=== PATIENT | male | born 1995 | race Caucasian/White ===

== ENCOUNTER 2018-01-11 11:36 | Outpatient (CLI) | payer MEDICAID | END 2018-01-11 11:37 | disposition critical access hospital (66) | LOC: EMS 11:36 | PROVIDERS: ATTEND Surgery | DX: S81.011A Laceration without foreign body, right knee, initial encounter (principal); V03.10XA Pedestrian on foot injured in collision with car, pick-up truck or van in traffic accident, initial encounter; Y93.01 Activity, walking, marching and hiking; Y92.413 State road as the place of occurrence of the external cause | CPT/HCPCS: A0425; A0429; A0999 ==

== ENCOUNTER 2018-01-11 11:53 | Emergency (ER) | payer MEDICAID ==
[2018-01-11] MEDS ORDERED: HYDROcod/ACETAM 10 MG/325 MG TABLET PO STA (12:07)
[2018-01-11] MEDS ORDERED: TETANUS/DIPHTHERIA/PERTUSSIS 0.5 ML SYRINGE IM ONE (12:07)
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
[2018-01-11] MEDS: NAPROXEN 250 MG TABLET PO STA ×2 (12:14→12:15)
--- NOTE | 2018-01-11 13:10 | XRAY Report ---
Procedure Date: 01/11/2018 Accession Number: [id number] / [id number] Procedure: XR - Pelvis 1 View CPT Code: FULL RESULT: EXAM: PELVIS RADIOGRAPHY EXAM DATE: 01/11/2018 12:47 PM. CLINICAL HISTORY: Pain after injury. COMPARISON: None. TECHNIQUE: 1 view. FINDINGS: Bones: Normal. No fracture or bone lesion. Joints: The visualized hip, pubis symphysis, and sacroiliac joints are preserved. No subluxation. Soft Tissues: Normal. No soft tissue swelling. IMPRESSION: Normal pelvis radiography. RADIA
--- NOTE | 2018-01-11 13:10 | XRAY Report ---
Procedure Date: 01/11/2018 Accession Number: [id number] / [id number] Procedure: XR - Knee 3 View BILAT CPT Code: FULL RESULT: EXAMS: 1. RIGHT KNEE RADIOGRAPHY 2. LEFT KNEE RADIOGRAPHY EXAM DATE:01/11/2018 12:47 PM. CLINICAL HISTORY:Pain after injury. COMPARISON: None. TECHNIQUE: 3 views each. FINDINGS: Right Knee: Bones: Normal. No fractures or bone lesions. Joints: Normal. No effusion. No subluxations. Small osteophyte off the medial patellar facet. Soft Tissues: Normal. No soft tissue swelling. Left Knee: Bones: Normal. No fractures or bone lesions. Joints: Normal. No effusion. No subluxations. Soft Tissues: Normal. No soft tissue swelling. IMPRESSION: No acute bony abnormality. RADIA
--- NOTE | 2018-01-11 13:11 | XRAY Report ---
Procedure Date: 01/11/2018 Accession Number: [id number] / [id number] Procedure: XR - Tib/Fib RT CPT Code: FULL RESULT: EXAM: RIGHT TIBIA/FIBULA RADIOGRAPHY EXAM DATE: 01/11/2018 12:48 PM. CLINICAL HISTORY: Pain after injury. COMPARISON: None. TECHNIQUE: 4 views. FINDINGS: Bones: Normal. No fracture or bone lesion. Joints: The visualized knee and ankle joints are normal. No effusions. Soft Tissues: Normal. No soft tissue swelling. IMPRESSION: Normal tibia/fibula radiography. RADIA
[2018-01-11] MEDS ORDERED: LIDOCAINE-EPINEPH-TETRACAINE 3 ML SYRINGE TOP STA (13:27)
[2018-01-11 14:31] VITALS: BP 126/71
== END 2018-01-11 14:31 | disposition home or self-care (01) ==
LOC: ED 11:53
DX: S80.212A Abrasion, left knee, initial encounter (principal); S81.011A Laceration without foreign body, right knee, initial encounter; S80.00XA Contusion of unspecified knee, initial encounter; V09.9XXA Pedestrian injured in unspecified transport accident, initial encounter; Y92.410 Unspecified street and highway as the place of occurrence of the external cause; Y93.01 Activity, walking, marching and hiking
CPT/HCPCS: 12001; 72170; 73562; 73590; 90471; 90715; 99283; A9270

== ENCOUNTER 2018-01-15 14:09 | Outpatient (CLI) | payer MEDICAID ==
[2018-01-15 18:42] LABS: BASOPHILS % (AUTO) 0.5 %; EOSINOPHILS % (AUTO) 0.6 %; HGB - HEMOGLOBIN 15.2 g/dL (14.0-18.0); LYMPHOCYTES # (AUTO) 1.7 10^3/uL (1.5-3.5); LYMPHOCYTES % (AUTO) 23.4 %; MEAN CORPUSCULAR HEMOGLOBIN 32.4 pg (27.0-31.0); MEAN CORPUSCULAR HGB CONC 34.3 g/dL (32.0-36.0); MEAN CORPUSCULAR VOLUME 94.6 fL (80.0-94.0); MONOCYTES # (AUTO) 0.6 10^3/uL (0.0-1.0); MONOCYTES % (AUTO) 7.7 %; NEUTROPHILS # (AUTO) 4.9 10^3/uL (1.5-6.6); NEUTROPHILS % (AUTO) 67.8 %; PLT - PLATELET COUNT 188 10^3/uL (130-450); RED BLOOD COUNT 4.68 10^6/uL (4.70-6.10); RED CELL DISTRIBUTION WIDTH 12.2 % (12.0-15.0); WHITE BLOOD COUNT 7.2 x10^3/uL (4.8-10.8)
[2018-01-15 19:08] LABS: LITHIUM 0.29 mmol/L
[2018-01-15 19:10] LABS: ALBUMIN 4.7 g/dL (3.2-5.5); ALBUMIN/GLOBULIN RATIO 1.6 (1.0-2.2); ALKALINE PHOSPHATASE 89 IU/L (42-121); ALT ALANINE AMINOTRANSFERASE 26 IU/L (10-60); AST ASPARTATE AMINOTRANSFERASE 32 IU/L (10-42); BILIRUBIN,TOTAL 1.1 mg/dL (0.2-1.0); BUN - BLOOD UREA NITROGEN 14 mg/dL (6-20); CALCIUM 9.9 mg/dL (8.5-10.3); CARBON DIOXIDE - CO2 26 mmol/L (21-32); CHLORIDE 105 mmol/L (101-111); CHOL/HDL RATIO 2.5 (<5.0); CHOLESTEROL 106 mg/dL; CREATININE 0.9 mg/dL (0.6-1.2); GFR - MDRD 108 (>89); GLUCOSE 93 mg/dL (70-100); HDL CHOLESTEROL 43 mg/dL; LDL CHOLESTEROL,CALCULATED 38 mg/dL; LDL/HDL RATIO 0.9 (<3.6); SODIUM 137 mmol/L (135-145); TOTAL PROTEIN 7.6 g/dL (6.7-8.2); VLDL CHOLESTEROL 25 mg/dL
== END 2018-01-15 14:10 | disposition home or self-care (01) ==
LOC: LAB.N 14:09
PROVIDERS: ATTEND Nurse Practitioner Gerontology
DX: Z13.9 Encounter for screening, unspecified (principal); Z79.899 Other long term (current) drug therapy
CPT/HCPCS: 36415; 80050; 80061; 80178; 83721

== ENCOUNTER 2018-04-30 14:00 | Outpatient (CLI) | payer MEDICAID ==
[2018-05-01 12:21] LABS: HEPATITIS B SURFACE ANTIGEN NON-REACTIVE (NON-REACTIVE)
[2018-05-01 13:01] LABS: HEPATITIS C ANTIBODY NON-REACTIVE (NON-REACTIVE)
[2018-05-01 14:22] LABS: HIV AG/AB 4TH GEN NON-REACTIVE (NON-REACTIVE)
== END 2018-04-30 14:01 | disposition home or self-care (01) ==
LOC: LAB 14:00
PROVIDERS: ATTEND Internal Medicine
DX: Z11.3 Encounter for screening for infections with a predominantly sexual mode of transmission (principal)
CPT/HCPCS: 36415; 81599; 86592; 86803; 87340; 87389

== ENCOUNTER 2018-07-03 17:51 | Emergency (ER) | payer MEDICAID ==
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
[2018-07-03] MEDS ORDERED: IBUPROFEN 600 MG TABLET PO STA (18:30)
[2018-07-03] MEDS ORDERED: ACETAMINOPHEN 325 MG TABLET PO STA (18:30)
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
[2018-07-03 19:36] VITALS: BP 136/91
== END 2018-07-03 19:36 | disposition home or self-care (01) ==
LOC: ED 17:51
DX: S40.211A Abrasion of right shoulder, initial encounter (principal); S06.0X0A Concussion without loss of consciousness, initial encounter; S00.03XA Contusion of scalp, initial encounter; V00.131A Fall from skateboard, initial encounter; Y93.51 Activity, roller skating (inline) and skateboarding; F17.200 Nicotine dependence, unspecified, uncomplicated
CPT/HCPCS: 70450; 73030; 99283; A9270

== ENCOUNTER 2018-07-17 13:43 | Emergency (ER) | payer MEDICAID ==
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
[2018-07-17] MEDS ORDERED: ACETAMINOPHEN 325 MG TABLET PO STA (16:38)
[2018-07-17 17:03] LABS: ALBUMIN 4.5 g/dL (3.2-5.5); ALBUMIN/GLOBULIN RATIO 1.5 (1.0-2.2); BILIRUBIN,TOTAL 0.8 mg/dL (0.2-1.0); CALCIUM 9.8 mg/dL (8.5-10.3); MAGNESIUM 2.2 mg/dL (1.7-2.8); TOTAL PROTEIN 7.5 g/dL (6.7-8.2)
[2018-07-17 17:23] LABS: LITHIUM 0.48 mmol/L
[2018-07-17 17:27] VITALS: BP 130/83
== END 2018-07-17 17:05 | disposition home or self-care (01) ==
LOC: ED 13:43
DX: R42 Dizziness and giddiness (principal); R51 Headache; R41.0 Disorientation, unspecified; T43.595A Adverse effect of other antipsychotics and neuroleptics, initial encounter; F17.200 Nicotine dependence, unspecified, uncomplicated
CPT/HCPCS: 36415; 80053; 80178; 83690; 83735; 99283; A9270

== ENCOUNTER 2018-10-12 20:00 | Emergency (ER) | payer MEDICAID ==
--- NOTE | 2018-10-12 20:16 | ED Physician Documentation ---
PD HPI CHEST PAIN - Stated complaint Stated Complaint: CHEST PX - Chief complaint Chief Complaint: Cardiac - History obtained from History obtained from: Patient - History of Present Illness Timing - onset: Enter time (1919), Today Timing - onset during: Rest Timing - duration: Minutes Timing - details: Abrupt onset, Still present Pain level max: 8 Pain level now: 2 Quality: Pressure Location: Substernal, Left chest Radiation: Back Improved by: Rest Worsened by: Inspiration Associated symptoms: Shortness of air, Cough Similar symptoms before: Has not had sx before Recently seen: Not recently seen - Additional information Additional information: Previously well 23-year-old schizophrenic male has developed cough and congestion over the past week and today he was sitting on his couch when he developed chest pain in the left side radiating to his back. He states that he is having a hard time getting a full deep breath and he has not used an inhaler previously.He relates that he has had a lot of prior ear infections. Review of Systems Constitutional: denies: Fever Eyes: denies: Decreased vision Ears: denies: Ear pain Nose: reports: Rhinorrhea / runny nose, Congestion Throat: reports: Sore throat Cardiac: reports: Chest pain / pressure. denies: Palpitations, Pedal edema, Calf pain Respiratory: reports: Dyspnea, Cough GI: denies: Abdominal Pain, Nausea, Vomiting : denies: Dysuria, Frequency PD PAST MEDICAL HISTORY - Past Medical History Cardiovascular: None Respiratory: None Neuro: None Endocrine/Autoimmune: None Psych: Bipolar disorder, Schizophrenia, Obsessive compulsive disorder - Past Surgical History Past Surgical History: Yes HEENT: Tonsil/Adenoidectomy - Present Medications Home Medications: Ambulatory Orders Medication Instructions Recorded Confirmed [place] 1 01/11/18 OLANZapine [Zyprexa] 1 01/11/18 Albuterol Sulf [Ventolin Hfa 1 - 2 puffs INH Q4HR PRN #1 inhaler 10/12/18 Inhaler] Azithromycin [Zithromax] 250 mg PO DAILY #4 tablet 10/12/18 FLUoxetine [PROzac] 10 mg PO DAILY 10/12/18 10/12/18 Nortriptyline [Pamelor] 10 mg PO QPM 10/12/18 10/12/18 - Allergies Allergies/Adverse Reactions: Allergies Allergy/AdvReac Type Severity Reaction Status Date / Time No Known Drug Allergies Allergy Verified 07/17/18 14:04 - Social History Does the pt smoke?: Yes Smoking Status: Current every day smoker Does the pt drink ETOH?: Yes Does the pt have substance abuse?: Yes - Immunizations Immunizations are current?: No Immunizations: Other immun not current - POLST Patient has POLST: No PD ED PE NORMAL - Vitals Vital signs reviewed: Yes (hypertensive mild ) - General General: Alert and oriented X 3, No acute distress, Well developed/nourished, Other (23 y/o male appears intoxicated with partial lid ptosis and injected sclera. ) - HEENT HEENT: Atraumatic, PERRL, EOMI, Other (The right TM is inflamed with distortion of the landmarks, the left is obscured by cerumen. pharynx with erythema and dry mucous membranes. ) - Neck Neck: Supple, no meningeal sign, No bony TTP - Cardiac Cardiac: RRR, No murmur - Respiratory Respiratory: No respiratory distress, Other (diminished breath sounds with insp crackles at the right base. ) - Abdomen Abdomen: Soft, Non tender - Back Back: No CVA TTP, No spinal TTP - Derm Derm: Normal color, Warm and dry, No rash - Extremities Extremities: No deformity, No edema - Neuro Neuro: Alert and oriented X 3, search engine optimizer 2-12 intact, No motor deficit, No sensory deficit, Normal speech Eye Opening: Spontaneous Motor: Obeys Commands Verbal: Oriented GCS Score: 15 - Psych Psych: Normal mood, Normal affect Results - Vitals Vitals: Vital Signs - 24 hr 10/12/18 10/12/18 10/12/18 20:02 20:42 21:15 Temperature 36.4 C L Heart Rate 77 77 83 Respiratory 18 29 H 22 Rate Blood Pressure 136/75 H 124/75 O2 Saturation 100 96 Oxygen O2 Source Room air - EKG (time done) 2007 Rate: Rate (enter#) (70) Rhythm: NSR Ischemia: Normal ST segments Compare to prior EKG: Old EKG unavailable Computer interpretation: Agree with computer - Rads (name of study) 2 veiw chest Radiology: Prelim report reviewed (Impression: No acute cardiopulmonary process.), EMP read indepedently, See rad report PD MEDICAL DECISION MAKING - ED course Complexity details: reviewed results, re-evaluated patient, considered differential, d/w patient ED course: 23-year-old male who appears intoxicated on arrival to the [facility] is complaining some chest pain in the left side and has otitis on examination. He is administered Dexamethasone 10 mg orally and a DuoNeb treatment. He does have some reactive airway disease today and has not previously used an inhaler. He does have some diminished breath sounds and some rhonchi in the right base and on chest x-ray is ordered. The DuoNeb treatment does help and the chest x-ray demonstrates what appears to be a very full stomach. I discussed with this with the patient and asked him not eat anything more tonight we will send him home with a prescription for an inhaler and azithromycin. Departure - Departure Disposition: , Self Care Clinical Impression: Otitis media Qualifiers: Otitis media type: suppurative Chronicity: acute Laterality: unspecified laterality Recurrence: not specified as recurrent Spontaneous tympanic membrane rupture: without spontaneous rupture Qualified Code(s): H66.009 - Acute suppurative otitis media without spontaneous rupture of ear drum, unspecified ear Condition: Stable Instructions: ED Otitis Media Acute Adult Follow-Up: Steven Rosado MD [Primary Care Provider] - Prescriptions: Albuterol Sulf [Ventolin Hfa Inhaler] 1 - 2 puffs INH Q4HR PRN #1 inhaler PRN Reason: Shortness Of Air/Wheezing Azithromycin [Zithromax] 250 mg PO DAILY #4 tablet
[2018-10-12] MEDS ORDERED: CHERRY SYRUP 10 ML UDC PO ONE (20:24)
[2018-10-12] MEDS ORDERED: IPRATROPIUM/ALBUTEROL 3 ML NEB INH STA (20:24)
[2018-10-12] MEDS ORDERED: DEXAMETHASONE 10 MG/ML VIAL PO STA (20:24)
--- NOTE | 2018-10-12 21:02 | XRAY Report ---
Reason: chest pain diminished breath sounds Procedure Date: 10/12/2018 Accession Number: [id number] / [id number] Procedure: XR - Chest 2 View X-Ray CPT Code: 54114 FULL RESULT: EXAM: CHEST RADIOGRAPHY EXAM DATE: 10/12/2018 08:42 PM. CLINICAL HISTORY: Chest pain diminished breath sounds. COMPARISON: SHOULDER 1 VIEW RT 07/08/2018 2:02 PM. TECHNIQUE: 2 views. FINDINGS: Lungs/Pleura: No focal opacities evident. No pleural effusion. No pneumothorax. Normal volumes. Mediastinum: Heart and mediastinal contours are unremarkable. Other: None. IMPRESSION: No acute cardiopulmonary process. RADIA
[2018-10-12 21:16] VITALS: BP 124/75
[2018-10-12] MEDS ORDERED: AZITHROMYCIN 250 MG TABLET PO STA (21:26)
== END 2018-10-12 21:35 | disposition home or self-care (01) ==
LOC: ED 20:00
DX: H66.009 Acute suppurative otitis media without spontaneous rupture of ear drum, unspecified ear (principal); R07.9 Chest pain, unspecified; H61.22 Impacted cerumen, left ear; F17.200 Nicotine dependence, unspecified, uncomplicated
CPT/HCPCS: 71046; 93005; 94640; 94664; 99283; A9270

== ENCOUNTER 2018-11-04 17:39 | Outpatient (CLI) | payer MEDICAID | END 2018-11-04 17:40 | disposition critical access hospital (66) | LOC: EMS 17:39 | PROVIDERS: ATTEND Surgery | DX: R10.31 Right lower quadrant pain (principal); R10.32 Left lower quadrant pain | CPT/HCPCS: A0425; A0429; A0999 ==

== ENCOUNTER 2018-11-04 18:07 | Emergency (ER) | payer MEDICAID ==
[2018-11-04 18:15] VITALS: BP 135/77
--- NOTE | 2018-11-04 18:30 | ED Physician Documentation ---
PD HPI ABD PAIN - Stated complaint Stated Complaint: ABD PAIN - Chief complaint Chief Complaint: Abd Pain - History obtained from History obtained from: Patient, EMS - History of Present Illness Timing - onset: Today (This is a young man with some psychiatric issues that smoked "a whole lot" of marijuana and then despite having gluten intolerance went to [employer] where he had a large sandwich. Subsequent to that he developed epigastric pain that was nonradiating which is now resolved without specific intervention. He is pain-free and symptom-free at this juncture.) Review of Systems Ten Systems: 10 systems reviewed and negative Constitutional: reports: Reviewed and negative Cardiac: reports: Reviewed and negative Respiratory: reports: Reviewed and negative PD PAST MEDICAL HISTORY - Past Medical History Past Medical History: No Cardiovascular: None Respiratory: None Neuro: None Endocrine/Autoimmune: None GI: None : None HEENT: None Psych: Bipolar disorder, Schizophrenia, Panic attacks, Obsessive compulsive disorder, Other Musculoskeletal: None Derm: None Other [facility] - Past Surgical History Past Surgical History: Yes HEENT: Tonsil/Adenoidectomy - Present Medications Home Medications: Ambulatory Orders Medication Instructions Recorded Confirmed [place] 1 01/11/18 OLANZapine [Zyprexa] 1 01/11/18 Albuterol Sulf [Ventolin Hfa 1 - 2 puffs INH Q4HR PRN #1 inhaler 10/12/18 Inhaler] Azithromycin [Zithromax] 250 mg PO DAILY #4 tablet 10/12/18 FLUoxetine [PROzac] 10 mg PO DAILY 10/12/18 10/12/18 Nortriptyline [Pamelor] 10 mg PO QPM 10/12/18 10/12/18 - Allergies Allergies/Adverse Reactions: Allergies Allergy/AdvReac Type Severity Reaction Status Date / Time No Known Drug Allergies Allergy Verified 11/04/18 18:13 - Social History Does the pt smoke?: Yes Smoking Status: Current every day smoker Does the pt drink ETOH?: Yes Does the pt have substance abuse?: Yes Substance Use and Type: Marijuana - Immunizations Immunizations are current?: No Immunizations: Other immun not current - POLST Patient has POLST: No PD ED PE NORMAL - Vitals Vital signs reviewed: Yes - General General: Alert and oriented X 3, Other (Odd affect, poor eye contact) - HEENT HEENT: PERRL, EOMI - Abdomen Abdomen: Normal bowel sounds, Soft, Non tender - Back Back: No CVA TTP, No spinal TTP - Extremities Extremities: No edema, No calf tenderness / cord - Neuro Neuro: Alert and oriented X 3, Normal speech Results - Vitals Vitals: Vital Signs - 24 hr 11/04/18 18:11 Temperature 37.4 C Heart Rate 102 H Respiratory 18 Rate Blood Pressure 135/77 H O2 Saturation 96 Oxygen O2 Source Room air PD MEDICAL DECISION MAKING - ED course ED course: 23-year-old gentleman had fleeting epigastric pain after eating [employer] after smoking a lot of marijuana. His symptoms are now gone and he requests discharge without further diagnostics. Departure - Departure Disposition: 01 Home, Self Care Clinical Impression: Abdominal pain Qualifiers: Abdominal location: epigastric Qualified Code(s): R10.13 - Epigastric pain Condition: Good Record reviewed to determine appropriate education?: Yes Instructions: ED Abdominal Pain Unkn Cause Male Comments: Return if you develop recurrent symptoms or other new issues. Follow-up with your doctor.
== END 2018-11-04 18:41 | disposition home or self-care (01) ==
LOC: EDUNIT# → ED 18:07
DX: R10.13 Epigastric pain (principal); F12.10 Cannabis abuse, uncomplicated; K90.41 Non-celiac gluten sensitivity; F17.200 Nicotine dependence, unspecified, uncomplicated
CPT/HCPCS: 99282

== ENCOUNTER 2018-11-10 15:16 | Emergency (ER) | payer MEDICAID ==
[2018-11-10 15:23] VITALS: BP 129/70
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
== END 2018-11-10 16:00 | disposition home or self-care (01) ==
LOC: ED 15:16
DX: R44.0 Auditory hallucinations (principal); F31.9 Bipolar disorder, unspecified; F20.9 Schizophrenia, unspecified; F17.200 Nicotine dependence, unspecified, uncomplicated
CPT/HCPCS: 99282; 99283

== ENCOUNTER 2018-11-28 14:16 | Emergency (ER) | payer MEDICAID ==
[2018-11-28 15:18] LABS: CALCIUM 10.3 mg/dL (8.5-10.3)
[2018-11-28 15:35] LABS: LITHIUM 0.37 mmol/L
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
--- NOTE | 2018-11-28 19:49 | TELEPSYCH PHYS NOTE ---
Telepsych Note - PSYCHIATRIC HX/TREATMENT HX Psychiatric: Bipolar disorder, Schizophrenia, Panic attacks, Obsessive compu lsive disorder, Other - DRUG/ALCOHOL HX Substance Use and Type: Marijuana - MEDICAL HX Does the pt have a hx of MRSA?: No Neurological History: None Eyes, Ears, Nose, Throat: None Cardiovascular: None Respiratory: None Skin: None Endocrine/Autoimmune: None Gastrointestinal: None Urinary: None Musculoskeletal: None Blood Disorders: None PMH Other: TBI - HOME MEDICATIONS Home Meds (as last confirmed): Patient History Medication Instructions Recorded Confirmed [place] 1 01/11/18 OLANZapine [Zyprexa] 1 01/11/18 FLUoxetine [PROzac] 10 mg PO DAILY 10/12/18 10/12/18 Nortriptyline [Pamelor] 10 mg PO QPM 10/12/18 10/12/18 - ALLERGIES Allergies (as last confirmed): Allergies Allergy/AdvReac Type Severity Reaction Status Date / Time No Known Drug Allergies Allergy Verified 11/28/18 14:47
[2018-11-28] MEDS ORDERED: OLANZapine ODT 5 MG TABLET TL STA (21:29)
[2018-11-28] MEDS ORDERED: LITHIUM 150 MG CAPSULE PO STA (21:29)
--- NOTE | 2018-11-28 21:31 | ED Physician Documentation ---
ED Addendum - Addendum Addendum: 11/28/18 21:31 23-year-old gentleman signed down by Dr. Singleton. He is psychotic and seems slightly decompensated. Per his recommendations tele-psychiatric consultation was done by Dr. Chavez and I spoke with him personally. He does recommend inpatient hospitalization and the patient was agreeable. Pending that recommends 300 mg p.o. twice daily of lithium and 10 mg p.o. twice daily of Zyprexa.
[2018-11-28] MEDS ORDERED: NORTRIPTYLINE 25 MG CAPSULE PO STA (21:50)
[2018-11-28 21:52] LABS: AMPHETAMINE SCREEN,URINE NEGATIVE (NEGATIVE); BENZODIAZEPINES SCREEN, URINE NEGATIVE (NEGATIVE); COCAINE SCREEN URINE NEGATIVE (NEGATIVE); METHADONE SCREEN, URINE NEGATIVE (NEGATIVE); METHAMPHETAMINES SCREEN, URINE NEGATIVE (NEGATIVE); MUDS CUTOFF CONCENTRATIONS CUTOFF CONC BELOW:; OPIATE SCREEN, URINE NEGATIVE (NEGATIVE); OXYCODONE SCREEN, URINE NEGATIVE (NEGATIVE); PROPOXYPHENE SCREEN, URINE NEGATIVE (NEGATIVE); TRICYCLIC ANTIDEPRESSANT,URINE POSITIVE (NEGATIVE)
[2018-11-28 22:10] LABS: BASOPHILS # (AUTO) 0.1 10^3/uL (0.0-0.1); BASOPHILS % (AUTO) 0.6 %; EOSINOPHILS # (AUTO) 0.3 10^3/uL (0.0-0.7); EOSINOPHILS % (AUTO) 2.7 %; HGB - HEMOGLOBIN 15.1 g/dL (14.0-18.0); LYMPHOCYTES # (AUTO) 2.9 10^3/uL (1.5-3.5); LYMPHOCYTES % (AUTO) 28.3 %; MEAN CORPUSCULAR HEMOGLOBIN 33.2 pg (27.0-31.0); MEAN CORPUSCULAR HGB CONC 35.4 g/dL (32.0-36.0); MEAN CORPUSCULAR VOLUME 93.8 fL (80.0-94.0); MEAN PLATELET VOLUME 8.1 fL (7.4-11.4); MONOCYTES % (AUTO) 9.3 %; NEUTROPHILS % (AUTO) 59.1 %; PLT - PLATELET COUNT 209 10^3/uL (130-450); RED BLOOD COUNT 4.55 10^6/uL (4.70-6.10); RED CELL DISTRIBUTION WIDTH 12.3 % (12.0-15.0); WHITE BLOOD COUNT 10.2 x10^3/uL (4.8-10.8)
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
[2018-11-28 22:22] LABS: ACETAMINOPHEN < 10 ug/mL (10-30); SALICYLATE < 6.0 mg/dL
[2018-11-29 08:50] VITALS: BP 134/80
[2018-11-29] MEDS ORDERED: LITHIUM 150 MG CAPSULE PO SCH (09:00)
[2018-11-29] MEDS ORDERED: OLANZapine ODT 5 MG TABLET TL SCH (09:00)
--- NOTE | 2018-11-29 09:53 | ED Physician Documentation ---
PD HPI MHE - Stated complaint Stated Complaint: HEAD PX - Chief complaint Chief Complaint: General PD PAST MEDICAL HISTORY - Past Medical History Past Medical History: Yes Cardiovascular: None Respiratory: None Neuro: None Endocrine/Autoimmune: None GI: None : None HEENT: None Psych: Bipolar disorder, Schizophrenia, Panic attacks, Obsessive compulsive disorder, Other Musculoskeletal: None Derm: None Other Past Medical History: TBI - Past Surgical History Past Surgical History: Yes HEENT: Tonsil/Adenoidectomy - Present Medications Home Medications: Ambulatory Orders Medication Instructions Recorded Confirmed [place] 1 01/11/18 OLANZapine [Zyprexa] 1 01/11/18 Albuterol Sulf [Ventolin Hfa 1 - 2 puffs INH Q4HR PRN #1 inhaler 10/12/18 Inhaler] Azithromycin [Zithromax] 250 mg PO DAILY #4 tablet 10/12/18 FLUoxetine [PROzac] 10 mg PO DAILY 10/12/18 10/12/18 Nortriptyline [Pamelor] 10 mg PO QPM 10/12/18 10/12/18 - Allergies Allergies/Adverse Reactions: Allergies Allergy/AdvReac Type Severity Reaction Status Date / Time No Known Drug Allergies Allergy Verified 11/28/18 14:47 - Social History Does the pt smoke?: Yes Smoking Status: Current every day smoker Does the pt drink ETOH?: Yes Does the pt have substance abuse?: Yes Substance Use and Type: Marijuana - Immunizations Immunizations are current?: No Immunizations: Other immun not current - POLST Patient has POLST: No Results - Vitals Vitals: Vital Signs - 24 hr 11/28/18 11/28/18 11/29/18 14:42 23:15 00:09 Temperature 37.1 C Heart Rate 96 Respiratory 20 15 14 Rate Blood Pressure 167/124 H O2 Saturation 97 11/29/18 11/29/18 11/29/18 01:40 02:16 03:17 Temperature Heart Rate Respiratory 14 14 14 Rate Blood Pressure O2 Saturation 11/29/18 11/29/18 11/29/18 04:17 05:26 06:19 Temperature Heart Rate Respiratory 14 14 14 Rate Blood Pressure O2 Saturation 11/29/18 08:49 Temperature 36.6 C Heart Rate 88 Respiratory 15 Rate Blood Pressure 134/80 H O2 Saturation 100 Oxygen O2 Source Room air - EKG (time done) 1339 Rate: Rate (enter#) (68) Rhythm: NSR Ischemia: Non specific changes Other comments: Other comments (QTc 0.44 (normal)) Compare to prior EKG: Unchanged from prior EKG (SPT 10-12-18 no changes) Computer interpretation: Agree with computer - Labs Labs: Laboratory Tests 11/28/18 11/28/18 11/28/18 15:04 15:04 21:29 WBC RBC Hgb Hct MCV MCH MCHC RDW Plt Count MPV Neut # (Auto) Lymph # (Auto) Hughes # (Auto) Eos # (Auto) Baso # (Auto) Absolute Nucleated RBC Nucleated RBC % Sodium 141 Potassium 4.0 Chloride 105 Carbon Dioxide 24 Anion Gap 12.0 BUN 13 Creatinine 1.0 Estimated GFR (MDRD) 94 Glucose 133 H Calcium 10.3 TSH Last Dose Date UNK Last Dose Time UNK Salicylates Urine Opiates Screen NEGATIVE Ur Oxycodone Screen NEGATIVE Urine Methadone Screen NEGATIVE Ur Propoxyphene Screen NEGATIVE Acetaminophen Ur Barbiturates Screen NEGATIVE Ur Tricyclics Screen POSITIVE H Ur Phencyclidine Scrn NEGATIVE Ur Amphetamine Screen NEGATIVE U Methamphetamines Scrn NEGATIVE U Benzodiazepines Scrn NEGATIVE [place] 0.37 Urine Cocaine Screen NEGATIVE U Cannabinoids Screen POSITIVE H Ethyl Alcohol 11/28/18 11/28/18 11/28/18 22:03 22:03 22:03 WBC 10.2 RBC 4.55 L Hgb 15.1 Hct 42.7 MCV 93.8 MCH 33.2 H MCHC 35.4 RDW 12.3 Plt Count 209 MPV 8.1 Neut # (Auto) 6.0 Lymph # (Auto) 2.9 Hughes # (Auto) 1.0 Eos # (Auto) 0.3 Baso # (Auto) 0.1 Absolute Nucleated RBC 0.01 Nucleated RBC % 0.0 Sodium Potassium Chloride Carbon Dioxide Anion Gap BUN Creatinine Estimated GFR (MDRD) Glucose Calcium TSH 1.53 Last Dose Date Last Dose Time Salicylates < 6.0 Urine Opiates Screen Ur Oxycodone Screen Urine Methadone Screen Ur Propoxyphene Screen Acetaminophen < 10 L Ur Barbiturates Screen Ur Tricyclics Screen Ur Phencyclidine Scrn Ur Amphetamine Screen U Methamphetamines Scrn U Benzodiazepines Scrn [place] Urine Cocaine Screen U Cannabinoids Screen Ethyl Alcohol < 5.0 Departure - Departure Disposition: 65 Psych Hosp/Unit DC/Xfer Clinical Impression: Schizoaffective disorder, bipolar type Condition: Stable
== END 2018-11-29 14:25 ==
LOC: ED 14:16
DX: F25.0 Schizoaffective disorder, bipolar type (principal); R94.31 Abnormal electrocardiogram [ECG] [EKG]; F17.200 Nicotine dependence, unspecified, uncomplicated; F12.90 Cannabis use, unspecified, uncomplicated
CPT/HCPCS: 36415; 80048; 80178; 80306; 80307; 80320; 80329; 84443; 85025; 93005; 99284; 99285; A9270

== ENCOUNTER 2019-02-19 06:13 | Day surgery (SDC) | payer MEDICAID ==
[2019-02-19] MEDS ORDERED: KETOROLAC 30 MG/ML VIAL IVP ONE (06:14)
[2019-02-19] MEDS ORDERED: HYDROmorphone 1 MG/ML SYRINGE IVP ONE (06:14)
[2019-02-19] MEDS ORDERED: PROPOFOL 200 MG/20 ML VIAL IVP ONE (06:14)
[2019-02-19] MEDS ORDERED: MIDAZOLAM 2 MG/2 ML VIAL IVP ONE (06:14)
[2019-02-19] MEDS ORDERED: fentaNYL 100 MCG/2 ML VIAL IVP ONE (06:14)
[2019-02-19] MEDS ORDERED: ROCURONIUM 50 MG/5 ML VIAL IVP ONE (06:14)
[2019-02-19] MEDS ORDERED: ONDANSETRON 4 MG/2 ML VIAL IVP ONE (06:14)
[2019-02-19] MEDS ORDERED: ePHEDrine 50 MG/ML VIAL IVP ONE (06:14)
[2019-02-19] MEDS ORDERED: ACETAMINOPHEN 1,000 MG/100 ML 100 ML IV ONE (06:14)
[2019-02-19] MEDS ORDERED: CEFAZOLIN SODIUM IN 0.9 % NACL 2 GM/100 ML BAG IV ONE (06:29)
[2019-02-19] MEDS ORDERED: LACTATED RINGERS 1,000 ML IV ONE (06:36)
--- NOTE | 2019-02-19 07:01 | ANESTHESIA ---
Pre-Anesthesia VS, & Labs - Diagnosis right shoulder AC joint separation - Procedure Right shoulder arthroscopy with slap repair Vital Signs: Temp Pulse Resp BP Pulse Ox 36.4 C L 57 L 16 117/76 99 02/19/19 06:38 02/19/19 06:38 02/19/19 06:38 02/19/19 06:38 02/19/19 06:38 Height 6 ft 1 in Weight (kg) 84.8 kg Body Mass Index 24.4 - NPO >8 hours Home Medications and Allergies [place] 1 01/11/18 OLANZapine [Zyprexa] 1 01/11/18 FLUoxetine [PROzac] 10 mg PO DAILY 10/12/18 Nortriptyline [Pamelor] 10 mg PO QPM 10/12/18 Allergies/Adverse Reactions: Allergies Allergy/AdvReac Type Severity Reaction Status Date / Time gluten AdvReac upset Verified 02/19/19 06:56 stomach dairy AdvReac upset Uncoded 02/19/19 06:56 stomach Anes History & Medical History - Anesthetic History Anesthesia Complications: reports: No previous complications - Medical History Cardiovascular: reports: None Pulmonary: reports: None Gastrointestinal: reports: None Urinary: reports: None Neuro: reports: None Musculoskeletal: reports: None Endocrine/Autoimmune: reports: None Blood Disorders: reports: None Skin: reports: None Smoking Status: Current every day smoker - Surgical History Eyes Ears Nose Throat (EENT): Tonsil/Adenoidectomy Exam General: Alert Dental: WNL Mouth Opening: Greater than 4 Fingerbreadths Neck Mobility: Normal Mallampati classification: II Respiratory: Lungs clear Cardiovascular: Regular rate, Normal S1, Normal S2 Plan Anesthesia Type: General, Interscalene Block Consent for Procedure(s) Verified and Reviewed: Yes Code Status: Attempt Resuscitation ASA classification: 2-Mild systemic disease Is this case an emergency?: No
[2019-02-19] MEDS ORDERED: EPINEPHrine 1 MG/ML AMP ONE (07:15)
[2019-02-19] MEDS: BUPIVACAINE 0.25% PF 30 ML VIAL ONE ×2 (08:39→10:56)
--- NOTE | 2019-02-19 11:30 | IMMEDIATE POSTOPERATIVE NOTE ---
Immediate Postoperative Note - Procedure Note Procedure Date: 02/19/19 Pre-Op Diagnosis: Right shoulder high-grade AC separation with conoid and trapezoid disruptio Procedure: Right coracoclavicular ligament reconstruction, distal clavicle excision Post-Op Diagnosis: Same Information Technology Manager: None Anesthesia Type: Combo spinal/epidural, General ET tube, Local Complications: No complications Estimated Blood Loss (in cc): 25 Plan of Care: Patient tolerated procedure well instrument and sponge counts correct patient transferred to recovery room in stable condition. Right upper extremity patient will remain in sling he will keep dressing clean dry intact. No shower for 3 days. After that may shower as long as dressing stays dry. He will avoid weightbearing right upper extremity. He may move elbow wrist and hand actively but avoid shoulder motion. He may come out of the sling for gentle elbow wrist and hand exercises 2-3 times daily and for bathing. He will have appropriate perioperative abx and narcotic analgesics as necessary. Patient will follow-up in 10 to 14 days or sooner as needed
[2019-02-19] MEDS ORDERED: ONDANSETRON 4 MG/2 ML VIAL IVP PRN (11:31)
[2019-02-19] MEDS ORDERED: oxyCODONE 5 MG TABLET PO PRN (11:31)
[2019-02-19 13:48] VITALS: BP 129/77
--- NOTE | 2019-02-19 16:23 | XRAY Report ---
Reason: RIGHT SHOULDER Procedure Date: 02/19/2019 Accession Number: [id number] / [id number] Procedure: [place] - OR C-Arm Procedure CPT Code: FULL RESULT: EXAM: FLUOROSCOPIC GUIDANCE EXAM DATE: 02/19/2019 11:30 AM. CLINICAL HISTORY: RIGHT SHOULDER. COMPARISON: None. IMPRESSION: Fluoroscopic guidance provided for right shoulder CR procedure. Total fluoroscopy time: 0.1 minutes. Number of images: 2. RADIA
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
== END 2019-02-19 06:14 | disposition home or self-care (01) ==
LOC: SDS 06:13
PROVIDERS: ATTEND Orthopaedic Surgery Sports Medicine
PROC: 0RUG0KZ Supplement Right Acromioclavicular Joint with Nonautologous Tissue Substitute, Open Approach (ICD-10-PCS; 2019-02-19)
PROC: 0PB90ZZ Excision of Right Clavicle, Open Approach (ICD-10-PCS; 2019-02-19)
PROC: 0RSG04Z Reposition Right Acromioclavicular Joint with Internal Fixation Device, Open Approach (ICD-10-PCS; principal; 2019-02-19 07:30)
DX: S43.101A Unspecified dislocation of right acromioclavicular joint, initial encounter (principal); F17.200 Nicotine dependence, unspecified, uncomplicated
CPT/HCPCS: 23120; 23550; C1713; C1762; J0131; J0690; J1170; J7120

== ENCOUNTER 2019-02-22 10:49 | Emergency (ER) | payer MEDICAID ==
--- NOTE | 2019-02-22 12:14 | ED Physician Documentation ---
PD HPI WOUND RECHECK - Stated complaint Stated Complaint: POSTOP/BANDAGES - Chief complaint Chief Complaint: Wound - Histroy obtained from History obtained from: Patient - History of Present Illness Location: Right Upper Extremity (Postop day 3 from an AC joint reconstruction, his dressing is coming off and he requests a new one.) Review of Systems Constitutional: reports: Reviewed and negative Cardiac: reports: Reviewed and negative Respiratory: reports: Reviewed and negative PD PAST MEDICAL HISTORY - Past Medical History Cardiovascular: None Respiratory: None Neuro: None Endocrine/Autoimmune: None GI: None : None HEENT: None Psych: Depression, Anxiety, Bipolar disorder, Schizophrenia Musculoskeletal: None Derm: None - Past Surgical History Past Surgical History: Yes HEENT: Tonsil/Adenoidectomy - Present Medications Home Medications: Ambulatory Orders Medication Instructions Recorded Confirmed [place] 600 mg PO BID 01/11/18 02/19/19 OLANZapine [Zyprexa] 5 mg PO DAILY 01/11/18 02/19/19 FLUoxetine [PROzac] 10 mg PO DAILY 10/12/18 02/19/19 OLANZapine [Zyprexa] 15 mg PO DAILY PM 02/19/19 02/19/19 busPIRone [Buspar] 50 mg PO TID 02/19/19 02/19/19 lamoTRIgine [Subvenite] 450 mg PO DAILY 02/19/19 02/19/19 - Allergies Allergies/Adverse Reactions: Allergies Allergy/AdvReac Type Severity Reaction Status Date / Time gluten AdvReac upset Verified 02/22/19 10:57 stomach lactose AdvReac UPSET Verified 02/22/19 10:57 STOMACH - Social History Does the pt smoke?: Yes Smoking Status: Current every day smoker Does the pt drink ETOH?: Yes Does the pt have substance abuse?: Yes - Immunizations Immunizations are current?: No Immunizations: Other immun not current - POLST Patient has POLST: No PD ED PE NORMAL - Vitals Vital signs reviewed: Yes - General General: Alert and oriented X 3, No acute distress - Extremities Extremities: Other (There is a half off silver dressing in place over the anterior shoulder, it was removed and replaced with a similar dressing during examination. The wound is sutured and clean dry and intact without any evidence of infection or complication.) - Neuro Neuro: Alert and oriented X 3, Normal speech Results - Vitals Vitals: Vital Signs - 24 hr 02/22/19 10:57 Temperature 37 C Heart Rate 79 Respiratory 16 Rate Blood Pressure 144/70 H O2 Saturation 98 Oxygen O2 Source Room air Departure - Departure Disposition: 01 Home, Self Care Clinical Impression: Dressing change or removal, surgical wound Condition: Good Record reviewed to determine appropriate education?: Yes Comments: Try to keep the dressing on for another few days. If it falls off after Sunday or so I think it is okay to leave it open. Follow-up with your surgeon as scheduled.
[2019-02-22 12:15] VITALS: BP 144/72
== END 2019-02-22 12:15 | disposition home or self-care (01) ==
LOC: ED 10:49
DX: Z48.01 Encounter for change or removal of surgical wound dressing (principal); Z98.890 Other specified postprocedural states; F17.200 Nicotine dependence, unspecified, uncomplicated
CPT/HCPCS: 99281

== ENCOUNTER 2019-02-28 11:39 | Emergency (ER) | payer MEDICAID ==
[2019-02-28 11:51] VITALS: BP 118/62
--- NOTE | 2019-02-28 12:20 | ED Physician Documentation ---
PD HPI WOUND RECHECK - Stated complaint Stated Complaint: POST SURGICAL CHECK - Chief complaint Chief Complaint: Wound - Histroy obtained from History obtained from: Patient - History of Present Illness Location: Other (R shoulder) Pain level max: 0 Pain level now: 0 Associated symptoms: No: Fever, Redness, Swelling, Drainage, Pain - Additional information Additional information: 1.5 weeks s/p R AC joint repair. Dressing coming off today. Review of Systems Constitutional: denies: Fever Skin: denies: Rash PD PAST MEDICAL HISTORY - Past Medical History Cardiovascular: None Respiratory: None Neuro: None Endocrine/Autoimmune: None GI: None : None HEENT: None Psych: Depression, Anxiety, Bipolar disorder, Schizophrenia Musculoskeletal: None Derm: None - Past Surgical History Past Surgical History: Yes Ortho: Other HEENT: Tonsil/Adenoidectomy - Present Medications Home Medications: Ambulatory Orders Medication Instructions Recorded Confirmed [place] 600 mg PO BID 01/11/18 02/19/19 OLANZapine [Zyprexa] 5 mg PO DAILY 01/11/18 02/19/19 FLUoxetine [PROzac] 10 mg PO DAILY 10/12/18 02/19/19 OLANZapine [Zyprexa] 15 mg PO DAILY PM 02/19/19 02/19/19 busPIRone [Buspar] 50 mg PO TID 02/19/19 02/19/19 lamoTRIgine [Subvenite] 450 mg PO DAILY 02/19/19 02/19/19 - Allergies Allergies/Adverse Reactions: Allergies Allergy/AdvReac Type Severity Reaction Status Date / Time gluten AdvReac upset Verified 02/28/19 11:47 stomach lactose AdvReac UPSET Verified 02/28/19 11:47 STOMACH - Social History Does the pt smoke?: Yes Smoking Status: Current every day smoker Does the pt drink ETOH?: Yes Does the pt have substance abuse?: Yes - Immunizations Immunizations are current?: No Immunizations: Other immun not current - POLST Patient has POLST: No PD ED PE NORMAL - Vitals Vital signs reviewed: Yes - General General: Alert and oriented X 3, No acute distress - Derm Derm: Warm and dry - Extremities Extremities: Other (Right shoulder incision is clean dry and intact without signs of infection.) - Neuro Neuro: Alert and oriented X 3 Results - Vitals Vitals: Vital Signs - 24 hr 02/28/19 11:45 Temperature 36.6 C Heart Rate 79 Respiratory 18 Rate Blood Pressure 118/62 O2 Saturation 98 Oxygen O2 Source Room air PD MEDICAL DECISION MAKING - ED course Complexity details: considered differential, d/w patient, d/w [employer] sales consultant ED course: Discussed with Dr. Hollis, he recommends placing a dry piece of gauze and Tegaderm over the wound. No signs of infection. Follow-up with orthopedics next week. Patient counseled regarding signs and symptoms for which I believe and urgent re-evaluation would be necessary. Patient with good understanding of and agreement to plan and is comfortable going home at this time This document was made in part using voice recognition software. While efforts are made to proofread this document, sound alike and grammatical errors may occur. Departure - Departure Disposition: 01 Home, Self Care Clinical Impression: Encounter for wound re-check Condition: Good Instructions: ED Wound Check Post Op No Infec Follow-Up: Sotero Hollis MD [Provider Admit Priv/Credential] - Within 1 week Comments: Keep the wound clean. I spoke with Dr. Hollis today and he will see you next week. Discharge Date/Time: 02/28/19 12:35
== END 2019-02-28 12:35 | disposition home or self-care (01) ==
LOC: ED 11:39
DX: Z48.01 Encounter for change or removal of surgical wound dressing (principal)

== ENCOUNTER 2019-02-28 21:02 | Emergency (ER) | payer MEDICAID ==
[2019-02-28 22:43] VITALS: BP 123/76
--- NOTE | 2019-02-28 22:53 | XRAY Report ---
Reason: post surgery feels like it is out of place Procedure Date: 02/28/2019 Accession Number: [id number] / [id number] Procedure: XR - Shoulder 3 View RT CPT Code: FULL RESULT: EXAM: RIGHT SHOULDER RADIOGRAPHY EXAM DATE: 02/28/2019 10:15 PM. CLINICAL HISTORY: Post surgery feels like it is out of place. COMPARISON: SHOULDER 3 VIEW RT 07/03/2018 6:34 PM. TECHNIQUE: 3 views. FINDINGS: Bones: Post surgical changes in right acromioclavicular joint with distal clavicular resection. Joints: Widened right acromioclavicular joint space is likely postsurgical. Soft tissues: The visualized hemithorax is unremarkable. No soft tissue swelling. IMPRESSION: Postsurgical changes in right chromic clavicular joint, with distal clavicular resection widened joint space. No acute displaced fracture. Right glenohumeral joint is well aligned. RADIA
--- NOTE | 2019-02-28 23:01 | ED Physician Documentation ---
PD HPI UPPER EXT INJURY - Stated complaint Stated Complaint: SHOULDER PX/POST SURG - Chief complaint Chief Complaint: Heent - History obtained from History obtained from: Patient - History of Present Illness Location: Right, Shoulder Type of injury: Other (Started using the shoulder today) Where injury occurred: Home Timing - onset: Today Timing - duration: Hours Timing - details: Abrupt onset, Still present Improved by: Rest Worsened by: Moving, Palpating Associated symptoms: No: Weakness, Numbness, Tingling, Swelling Similar symptoms before: Diagnosis (right A/C separation) Recently seen: Surgery - Additonal information Additional information: 23-year-old Schizophrenic male who is had a right AC procedure with removal of the clavicular head had his surgery done about 10 days ago. He was recovering well and he was seen in the emergency department earlier today for a dressing change. This evening he is in the emergency department with a concern about the shape and appearance of the shoulder. Today he put on a backpack and he is used his right arm to push himself up off the ground. He has some pain in the shoulder but he is here for what he perceives as a deformity to the shoulder. He feels like it might be out of socket. Review of Systems Constitutional: denies: Fever Respiratory: denies: Cough GI: denies: Vomiting Musculoskeletal: reports: Joint pain. denies: Neck pain, Back pain Neurologic: denies: Generalized weakness, Focal weakness, Numbness PD PAST MEDICAL HISTORY - Past Medical History Past Medical History: Yes Cardiovascular: None Respiratory: None Neuro: None Endocrine/Autoimmune: None GI: None : None HEENT: None Psych: Depression, Anxiety, Bipolar disorder, Schizophrenia Musculoskeletal: None Derm: None - Past Surgical History Past Surgical History: Yes Ortho: Other HEENT: Tonsil/Adenoidectomy - Present Medications Home Medications: Ambulatory Orders Medication Instructions Recorded Confirmed [place] 600 mg PO BID 01/11/18 02/19/19 OLANZapine [Zyprexa] 5 mg PO DAILY 01/11/18 02/19/19 FLUoxetine [PROzac] 10 mg PO DAILY 10/12/18 02/19/19 OLANZapine [Zyprexa] 15 mg PO DAILY PM 02/19/19 02/19/19 lamoTRIgine [Subvenite] 450 mg PO DAILY 02/19/19 02/19/19 - Allergies Allergies/Adverse Reactions: Allergies Allergy/AdvReac Type Severity Reaction Status Date / Time gluten AdvReac upset Verified 02/28/19 21:04 stomach lactose AdvReac UPSET Verified 02/28/19 21:04 STOMACH - Social History Does the pt smoke?: Yes Smoking Status: Current every day smoker Does the pt drink ETOH?: Yes Does the pt have substance abuse?: Yes Substance Use and Type: Marijuana - Immunizations Immunizations are current?: No Immunizations: Other immun not current - POLST Patient has POLST: No PD ED PE NORMAL - Vitals Vital signs reviewed: Yes (hypertensive mild ) - General General: Alert and oriented X 3, No acute distress, Well developed/nourished - HEENT HEENT: Atraumatic, PERRL, EOMI - Neck Neck: Supple, no meningeal sign, No bony TTP - Respiratory Respiratory: No respiratory distress - Derm Derm: Normal color, Warm and dry, No rash - Extremities Extremities: Other (There is a surgical site over the top of the right shoulder over the distal clavical and this appears to be healing well without signs of inflamation. There is no gross deformity to the shoulder and there is not the typical cosmetic deformity seen with A/C separation. Distal n/v is intact. ) - Neuro Neuro: Alert and oriented X 3, manager unit 2-12 intact, No motor deficit, No sensory deficit, Normal speech Eye Opening: Spontaneous Motor: Obeys Commands Verbal: Oriented GCS Score: 15 - Psych Psych: Normal mood, Normal affect Results - Vitals Vitals: Vital Signs - 24 hr 02/28/19 02/28/19 02/28/19 21:04 21:41 22:42 Temperature 36.5 C Heart Rate 100 82 62 Respiratory 16 16 14 Rate Blood Pressure 130/81 H 127/77 123/76 O2 Saturation 97 99 98 Oxygen O2 Source Room air - Rads (name of study) shoulder Radiology: Prelim report reviewed (Impression: Postsurgical changes in the right acromial clavicular joint, with distal clavicular resection widened joint space. No acute displaced fracture. Right glenohumeral joint is well aligned.), EMP read indepedently, See rad report PD MEDICAL DECISION MAKING - ED course Complexity details: reviewed results, re-evaluated patient, considered differential, d/w patient ED course: 23-year-old schizophrenic male 10 days status post AC revision appears to be healing well and he was feeling improved and did a little more than he was ready to do. He does have some pain and that is not why he is here I do not see any specific deformity cosmetic or otherwise. We did obtain x-rays today which were unremarkable. I shared the results with the patient and he is satisfied. Departure - Departure Disposition: 01 Home, Self Care Clinical Impression: Post-operative state Condition: Stable Instructions: Exercise Pendulum Shoulder Repair Follow-Up: Steven Rosado MD [Primary Care Provider] - Sotero Hollis MD [Provider Admit Priv/Credential] -
== END 2019-02-28 23:14 | disposition home or self-care (01) ==
LOC: ED 21:02
DX: Z98.890 Other specified postprocedural states (principal); F17.200 Nicotine dependence, unspecified, uncomplicated
CPT/HCPCS: 99282; 99283

== ENCOUNTER 2019-06-29 21:50 | Outpatient (CLI) | payer MEDICAID | END 2019-06-29 23:59 | disposition critical access hospital (66) | LOC: EMS 21:50 | PROVIDERS: ATTEND Surgery | DX: R42 Dizziness and giddiness (principal) | CPT/HCPCS: A0425; A0429 ==

== ENCOUNTER 2019-06-29 21:54 | Emergency (ER) | payer MEDICAID ==
--- NOTE | 2019-06-30 00:58 | ED Physician Documentation ---
History of Present Illness - Stated complaint Stated Complaint: DIZZY/ILL - Chief complaint Chief Complaint: Neuro - History obtained from History obtained from: Patient - History of Present Illness Timing: Enter time (17:00), Today Pain level max: 0 Pain level now: 0 Improved by: no ameliorating factors Worsened by: no apparent inciting nor exacerbating factors - Additonal information Additional information: c/o feeling delirious, my equilibrium was off, dizzy, as well, and problems with processing information. patient says symptoms started around 5 PM today without apparent inciting factor(s). denies h/o similar symptoms. denies missing doses of his prescription medications. denies drug use, denies alcohol use. denied recent injury on my HPI Review of Systems Constitutional: reports: Reviewed and negative Eyes: reports: Reviewed and negative Ears: reports: Reviewed and negative GI: reports: Reviewed and negative Neurologic: denies: Generalized weakness, Focal weakness, Numbness, Seizure, Headache, Head injury, LOC Psychiatric: reports: Reviewed and negative PD PAST MEDICAL HISTORY - Past Medical History Past Medical History: Yes Cardiovascular: None Respiratory: None Neuro: None Endocrine/Autoimmune: None GI: None : None HEENT: None Psych: Depression, Anxiety, Bipolar disorder, Schizophrenia, Other Musculoskeletal: None Derm: None Other Past Medical History: autistic - Past Surgical History Past Surgical History: Yes Ortho: Other HEENT: Tonsil/Adenoidectomy - Present Medications Home Medications: Ambulatory Orders Medication Instructions Recorded Confirmed [place] 600 mg PO BID 01/11/18 06/30/19 OLANZapine [Zyprexa] 5 mg PO DAILY 01/11/18 06/30/19 FLUoxetine [PROzac] 10 mg PO DAILY 10/12/18 06/30/19 OLANZapine [Zyprexa] 15 mg PO DAILY PM 02/19/19 06/30/19 lamoTRIgine [Subvenite] 450 mg PO DAILY 02/19/19 06/30/19 - Allergies Allergies/Adverse Reactions: Allergies Allergy/AdvReac Type Severity Reaction Status Date / Time gluten AdvReac upset Verified 06/29/19 22:06 stomach lactose AdvReac UPSET Verified 06/29/19 22:06 STOMACH - Social History Does the pt smoke?: Yes Smoking Status: Current every day smoker Does the pt drink ETOH?: Yes Does the pt have substance abuse?: Yes Substance Use and Type: Marijuana - Immunizations Immunizations are current?: Yes Immunizations: Other immun not current - POLST Patient has POLST: No PD ED PE NORMAL - Vitals Vital signs reviewed: Yes - General General: Alert and oriented X 3, No acute distress, Well developed/nourished, Other (answers appropriately. poor eye contact. disengaged at times during HPI, ROS) - HEENT HEENT: Atraumatic, PERRL, EOMI, Moist mucous membranes, Other (bilateral conjunctival injection, mild) - Neck Neck: Supple, no meningeal sign - Cardiac Cardiac: RRR, No murmur - Respiratory Respiratory: No respiratory distress, Clear bilaterally - Neuro Neuro: Alert and oriented X 3, cabinet professional 2-12 intact, No motor deficit, No sensory deficit, Normal speech Eye Opening: Spontaneous Motor: Obeys Commands Verbal: Oriented GCS Score: 15 PD ED PE EXPANDED - Psych Psych: Withdrawn, Poor eye contact, Other (flat affect) Results - Vitals Vitals: Oxygen O2 Source Room air - Labs Labs: Laboratory Tests 06/30/19 06/30/19 06/30/19 01:31 01:31 01:31 WBC 8.7 RBC 4.73 Hgb 15.4 Hct 44.4 MCV 93.9 MCH 32.6 H MCHC 34.7 RDW 11.5 L Plt Count 196 MPV 9.8 Neut # (Auto) 4.5 Lymph # (Auto) 3.2 [place] # (Auto) 0.6 Eos # (Auto) 0.3 Baso # (Auto) 0.0 Absolute Nucleated RBC 0.00 Nucleated RBC % 0.0 Sodium 139 Potassium 3.7 Chloride 107 Carbon Dioxide 26 Anion Gap 6.0 BUN 15 Creatinine 0.8 Estimated GFR (MDRD) 121 Glucose 97 Calcium 9.5 Last Dose Date UNKNOWN Last Dose Time UNKNOWN [place] 0.31 PD MEDICAL DECISION MAKING - ED course Complexity details: reviewed results, re-evaluated patient, considered differential, d/w patient ED course: some elements of his dizziness are s/o vertigo (feels like room is spinning at times), but not exacerbated with movement or turning head. he is unable to elaborate on what he means by problems with processing information, including the time of onset; his dizziness c/o began this afternoon, but he cannot provide time of onset for his other c/o. blood tests ordered and antivert given. after tests resulted, patient abruptly was requesting discharge because his mother was here to pick him up. blood tests are reassuring and H+P are not suggestive of emergent process that would necessitate further testing or treatment if patient feels well enough for d/c (which he is indicating). he denies SI, HI. denies hallucinations and does not exhibit hallucinatory nor delusional behavior at this time Departure - Departure Disposition: 01 Home, Self Care Clinical Impression: Dizziness Condition: Good Instructions: ED Dizziness UKO Discharge Date/Time: 06/30/19 02:15
[2019-06-30] MEDS ORDERED: MECLIZINE 12.5 MG TABLET PO STA ×2 (01:14→01:22)
[2019-06-30 01:39] LABS: BASOPHILS % (AUTO) 0.5 %; EOSINOPHILS # (AUTO) 0.3 10^3/uL (0.0-0.7); EOSINOPHILS % (AUTO) 3.7 %; HGB - HEMOGLOBIN 15.4 g/dL (14.0-18.0); LYMPHOCYTES # (AUTO) 3.2 10^3/uL (1.5-3.5); LYMPHOCYTES % (AUTO) 36.3 %; MEAN CORPUSCULAR HEMOGLOBIN 32.6 pg (27.0-31.0); MEAN CORPUSCULAR HGB CONC 34.7 g/dL (32.0-36.0); MEAN CORPUSCULAR VOLUME 93.9 fL (80.0-94.0); MEAN PLATELET VOLUME 9.8 fL (7.4-11.4); MONOCYTES # (AUTO) 0.6 10^3/uL (0.0-1.0); MONOCYTES % (AUTO) 7.2 %; NEUTROPHILS # (AUTO) 4.5 10^3/uL (1.5-6.6); PLT - PLATELET COUNT 196 10^3/uL (130-450); RED BLOOD COUNT 4.73 10^6/uL (4.70-6.10); RED CELL DISTRIBUTION WIDTH 11.5 % (12.0-15.0); WHITE BLOOD COUNT 8.7 x10^3/uL (4.8-10.8)
[2019-06-30 01:45] LABS: CALCIUM 9.5 mg/dL (8.5-10.3); CREATININE 0.8 mg/dL (0.6-1.2)
[2019-06-30 02:11] LABS: LITHIUM 0.31 mmol/L
[2019-06-30 02:15] VITALS: BP 144/81
== END 2019-06-30 02:15 | disposition home or self-care (01) ==
LOC: EDUNIT# → ED 21:54
DX: R42 Dizziness and giddiness (principal); F17.200 Nicotine dependence, unspecified, uncomplicated
CPT/HCPCS: 36415; 80048; 80178; 85025; 99284; A9270

== ENCOUNTER 2020-05-04 13:17 | Emergency (ER) | payer MEDICAID ==
--- NOTE | 2020-05-04 14:16 | ED Physician Documentation ---
History of Present Illness - Stated complaint Stated Complaint: MHE - Chief complaint Chief Complaint: MHE - Additonal information Additional information: 25-year-old male brought to the emergency department for a mental health evaluation. Per EMS report the patient missed his a.m. dose of his psychiatric medications and then had a panic attack. He expressed to the staff at [facility] thoughts of self-harm. He reports to me that he wishes to but is not brave enough to kill himself. He does report in the past he is trying to suffocate himself. However this time the patient is somewhat agitated and quite manic. He is not able to answer my questions coherently. When I asked him where he was or why he was here he did report to me that he was [employer] and [employer] brought him here. I cannot get this gentleman to contract for safety with me and do not feel that he would be safe if he eloped from the emergency department. Review of systems is limited even his psychiatric behavior at this time Nursing staff reports to me that patient has been away from [facility] for a number of months where he was up in [facility]. Since returning to [facility] they have been starting to get him back on his previously known psychiatric medications but have been having a difficult time with compliance Review of Systems Unable to obtain: Uncooperative, Other ([facility] health exam) PD PAST MEDICAL HISTORY - Past Medical History Cardiovascular: None Respiratory: None Neuro: None Endocrine/Autoimmune: None GI: None : None HEENT: None Psych: Depression, Anxiety, Bipolar disorder, Schizophrenia, Other Musculoskeletal: None Derm: None - Past Surgical History Past Surgical History: Yes Ortho: Other HEENT: Tonsil/Adenoidectomy - Present Medications Home Medications: Ambulatory Orders Medication Instructions Recorded Confirmed OLANZapine [Zyprexa] 5 mg PO DAILY 01/11/18 05/04/20 OLANZapine [Zyprexa] 15 mg PO DAILY PM 02/19/19 05/04/20 lamoTRIgine [Subvenite] 450 mg PO DAILY 02/19/19 05/04/20 Buspirone HCl 15 mg PO TID 05/04/20 05/04/20 - Allergies Allergies/Adverse Reactions: Allergies Allergy/AdvReac Type Severity Reaction Status Date / Time gluten AdvReac upset Verified 05/04/20 13:41 stomach lactose AdvReac UPSET Verified 05/04/20 13:41 STOMACH - Social History Does the pt smoke?: Yes Smoking Status: Current every day smoker Does the pt drink ETOH?: Yes Does the pt have substance abuse?: Yes - Immunizations Immunizations are current?: Yes Immunizations: Other immun not current - POLST Patient has POLST: No PD ED PE EXPANDED - General General: Alert, Disheveled, poorly kept, Other (manic, pressured speech; cindy facial appearance, poor hygeine) - HEENT HEENT: Atraumatic, PERRL - Cardiac Cardiac: Regular Rate, Regular Rhythm, Radial strong equal, Pedal strong equal - Respiratory Respiratory: Clear to ausultation chelsy. No: Distress, Labored - Abdomen Abdomen: Normal Bowel sounds. No: Tender to palpation - Extremities Extremities: Normal - Neuro Neuro: CNII-XII intact, CN deficit - GCS Eye Opening: Spontaneous Motor: Obeys Commands Verbal: Oriented Total: 15 - Psych Psych: Suicidal, Manic, Pressured speech (tangential pressured speech. Reports that he is a "god") Results - Vitals Vitals: Vital Signs - 24 hr 05/04/20 05/04/20 13:33 15:08 Temperature 36.3 C L 36.6 C Heart Rate 73 56 L Respiratory 16 14 Rate Blood Pressure 127/69 132/77 H O2 Saturation 97 99 Oxygen O2 Source Room air - EKG (time done) 1630 Rate: Rate (enter#) (56) Rhythm: NSR [place]: Normal Intervals: Normal DC QRS: Normal Ischemia: Normal ST segments Compare to prior EKG: Old EKG unavailable Computer interpretation: Agree with computer - Labs Labs: Laboratory Tests 05/04/20 05/04/20 05/04/20 14:11 14:11 14:11 WBC 7.5 RBC 4.87 Hgb 15.8 Hct 46.9 MCV 96.3 H MCH 32.4 H MCHC 33.7 RDW 11.9 L Plt Count 166 MPV 9.9 Neut # (Auto) 4.4 Lymph # (Auto) 2.2 [place] # (Auto) 0.7 Eos # (Auto) 0.1 Baso # (Auto) 0.1 Absolute Nucleated RBC 0.00 Nucleated RBC % 0.0 Sodium 137 Potassium 4.1 Chloride 101 Carbon Dioxide 26 Anion Gap 10.0 BUN 16 Creatinine 0.9 Estimated GFR (MDRD) 105 Glucose 109 H Calcium 9.7 Total Bilirubin 0.7 AST 27 ALT 22 Alkaline Phosphatase 77 Total Protein 7.4 Albumin 4.3 Globulin 3.1 Albumin/Globulin Ratio 1.4 Lipase 29 TSH 0.55 Urine Color Urine Clarity Urine pH Ur Specific [place] Urine Protein Urine Glucose (UA) Urine Ketones Urine Occult Blood Urine Nitrite Urine Bilirubin Urine Urobilinogen Ur Leukocyte Esterase Ur Microscopic Review Urine Culture Comments Nasal Adenovirus (PCR) Nasal B. parapertussis DNA (PCR) Nasal Coronavir 229E PCR Nasal Coronavir HKU1 PCR Nasal Coronavir NL63 PCR Nasal Coronavir OC43 PCR Nasal Enterovir/Rhinovir PCR Nasal Influenza B PCR Nasal Influenza A PCR Nasal Parainfluen 1 PCR Nasal Parainfluen 2 PCR Nasal Parainfluen 3 PCR Nasal Parainfluen 4 PCR Nasal RSV (PCR) Nasal B.pertussis DNA PCR Nasal C.pneumoniae (PCR) [place] Human Metapneumo PCR Nasal M.pneumoniae (PCR) Nasal SARS-CoV-2 (PCR) Salicylates < 6.0 Urine Opiates Screen Ur Oxycodone Screen Urine Methadone Screen Ur Propoxyphene Screen Acetaminophen < 10 L Ur Barbiturates Screen Ur Tricyclics Screen Ur Phencyclidine Scrn Ur Amphetamine Screen U Methamphetamines Scrn U Benzodiazepines Scrn Urine Cocaine Screen U Cannabinoids Screen Ethyl Alcohol < 5.0 05/04/20 05/04/20 15:00 15:10 WBC RBC Hgb Hct MCV MCH MCHC RDW Plt Count MPV Neut # (Auto) Lymph # (Auto) [place] # (Auto) Eos # (Auto) Baso # (Auto) Absolute Nucleated RBC Nucleated RBC % Sodium Potassium Chloride Carbon Dioxide Anion Gap BUN Creatinine Estimated GFR (MDRD) Glucose Calcium Total Bilirubin AST ALT Alkaline Phosphatase Total Protein Albumin Globulin Albumin/Globulin Ratio Lipase TSH Urine Color YELLOW Urine Clarity CLEAR Urine pH 7.5 Ur Specific [place] 1.010 Urine Protein NEGATIVE Urine Glucose (UA) NEGATIVE Urine Ketones NEGATIVE Urine Occult Blood NEGATIVE Urine Nitrite NEGATIVE Urine Bilirubin NEGATIVE Urine Urobilinogen 0.2 (NORMAL) Ur Leukocyte Esterase NEGATIVE Ur Microscopic Review NOT INDICATED Urine Culture Comments NOT INDICATED Nasal Adenovirus (PCR) NOT DETECTED Nasal B. parapertussis DNA (PCR) NOT DETECTED Nasal Coronavir 229E PCR NOT DETECTED Nasal Coronavir HKU1 PCR NOT DETECTED Nasal Coronavir NL63 PCR NOT DETECTED Nasal Coronavir OC43 PCR NOT DETECTED Nasal Enterovir/Rhinovir PCR NOT DETECTED Nasal Influenza B PCR NOT DETECTED Nasal Influenza A PCR NOT DETECTED Nasal Parainfluen 1 PCR NOT DETECTED Nasal Parainfluen 2 PCR NOT DETECTED Nasal Parainfluen 3 PCR NOT DETECTED Nasal Parainfluen 4 PCR NOT DETECTED Nasal RSV (PCR) NOT DETECTED Nasal B.pertussis DNA PCR NOT DETECTED Nasal C.pneumoniae (PCR) NOT DETECTED [place] Human Metapneumo PCR NOT DETECTED Nasal M.pneumoniae (PCR) NOT DETECTED Nasal SARS-CoV-2 (PCR) NOT DETECTED Salicylates Urine Opiates Screen NEGATIVE Ur Oxycodone Screen NEGATIVE Urine Methadone Screen NEGATIVE Ur Propoxyphene Screen NEGATIVE Acetaminophen Ur Barbiturates Screen NEGATIVE Ur Tricyclics Screen NEGATIVE Ur Phencyclidine Scrn NEGATIVE Ur Amphetamine Screen NEGATIVE U Methamphetamines Scrn NEGATIVE U Benzodiazepines Scrn NEGATIVE Urine Cocaine Screen NEGATIVE U Cannabinoids Screen NEGATIVE Ethyl Alcohol PD MEDICAL DECISION MAKING - ED course Complexity details: reviewed results, re-evaluated patient, considered differential, d/w patient, d/w family ED course: 25-year-old male was brought into the emergency department with acute psychosis and manic behavior. He has been hospitalized before in the past with psychosis. Initially at the time of presentation he did report thoughts of self-harm but stated that he could not harm himself as he was not brave enough to do it. However his speech is very pressured, his thoughts were not coherent and he was very tangential. Screening labs, EKG and COVID-19 tests are all negative. This gentleman did have an act during out behavior at about 5 PM in which she was thrashing about on the bed crying and screaming. Symptoms began to improve after getting Ativan. I did ask telepsych to evaluate the patient and I did speak on the phone with Dr. Brooks. She does recommend inpatient psychiatric treatment. She would recommend Zyprexa as needed for acute agitation and psychosis. I did ask Dr. Brooks if the patient was not willing to go voluntarily which she recommend involuntary treatment and she reported yes. I have discussed these findings with the patient and he reports to me that he feels better now and does not want to go to inpatient psychiatric facility. I will ask DCR to further evaluate the patient. At this time I do not feel that patient is safe to be discharged home as he does not have a congruent plan to manage his medications or his behaviors and I feel he is likely to escalate his behavior or attempt self-harm once released on his own
[2020-05-04 14:17] LABS: BASOPHILS # (AUTO) 0.1 10^3/uL (0.0-0.1); BASOPHILS % (AUTO) 0.7 %; EOSINOPHILS # (AUTO) 0.1 10^3/uL (0.0-0.7); EOSINOPHILS % (AUTO) 1.7 %; HGB - HEMOGLOBIN 15.8 g/dL (14.0-18.0); LYMPHOCYTES # (AUTO) 2.2 10^3/uL (1.5-3.5); LYMPHOCYTES % (AUTO) 28.9 %; MEAN CORPUSCULAR HEMOGLOBIN 32.4 pg (27.0-31.0); MEAN CORPUSCULAR HGB CONC 33.7 g/dL (32.0-36.0); MEAN CORPUSCULAR VOLUME 96.3 fL (80.0-94.0); MEAN PLATELET VOLUME 9.9 fL (7.4-11.4); MONOCYTES # (AUTO) 0.7 10^3/uL (0.0-1.0); MONOCYTES % (AUTO) 9.1 %; NEUTROPHILS # (AUTO) 4.4 10^3/uL (1.5-6.6); NEUTROPHILS % (AUTO) 59.3 %; PLT - PLATELET COUNT 166 10^3/uL (130-450); RED BLOOD COUNT 4.87 10^6/uL (4.70-6.10); RED CELL DISTRIBUTION WIDTH 11.9 % (12.0-15.0); WHITE BLOOD COUNT 7.5 x10^3/uL (4.8-10.8)
[2020-05-04 14:31] LABS: ACETAMINOPHEN < 10 ug/mL (10-30); ALBUMIN 4.3 g/dL (3.2-5.5); ALBUMIN/GLOBULIN RATIO 1.4 (1.0-2.2); ALKALINE PHOSPHATASE 77 IU/L (42-121); ALT ALANINE AMINOTRANSFERASE 22 IU/L (10-60); AST ASPARTATE AMINOTRANSFERASE 27 IU/L (10-42); BILIRUBIN,TOTAL 0.7 mg/dL (0.2-1.0); BUN - BLOOD UREA NITROGEN 16 mg/dL (6-20); CALCIUM 9.7 mg/dL (8.5-10.3); CARBON DIOXIDE - CO2 26 mmol/L (21-32); CHLORIDE 101 mmol/L (101-111); CREATININE 0.9 mg/dL (0.6-1.2); GLUCOSE 109 mg/dL (70-100); LIPASE 29 U/L (22-51); SALICYLATE < 6.0 mg/dL; SODIUM 137 mmol/L (135-145); TOTAL PROTEIN 7.4 g/dL (6.7-8.2)
[2020-05-04 15:16] LABS: MUDS CUTOFF CONCENTRATIONS CUTOFF CONC BELOW:
[2020-05-04 15:19] LABS: BILIRUBIN,URINE NEGATIVE (NEGATIVE); GLUCOSE, URINE (UA) NEGATIVE (NEGATIVE); KETONES,URINE (UA) NEGATIVE (NEGATIVE); LEUKOCYTE ESTERASE, URINE NEGATIVE (NEGATIVE); NITRITE,URINE NEGATIVE (NEGATIVE); OCCULT BLOOD,URINE NEGATIVE (NEGATIVE); PH,URINE 7.5 PH (5.0-7.5); PROTEIN,URINE NEGATIVE (NEGATIVE); UROBILINOGEN,URINE 0.2 (NORMAL) E.U./dL (NORMAL)
[2020-05-04 15:23] LABS: CLARITY,URINE CLEAR (CLEAR)
[2020-05-04 15:31] LABS: AMPHETAMINE SCREEN,URINE NEGATIVE (NEGATIVE); BENZODIAZEPINES SCREEN, URINE NEGATIVE (NEGATIVE); COCAINE SCREEN URINE NEGATIVE (NEGATIVE); METHADONE SCREEN, URINE NEGATIVE (NEGATIVE); METHAMPHETAMINES SCREEN, URINE NEGATIVE (NEGATIVE); OPIATE SCREEN, URINE NEGATIVE (NEGATIVE); OXYCODONE SCREEN, URINE NEGATIVE (NEGATIVE); PROPOXYPHENE SCREEN, URINE NEGATIVE (NEGATIVE); TRICYCLIC ANTIDEPRESSANT,URINE NEGATIVE (NEGATIVE)
[2020-05-04 16:43] LABS: C. PNEUMONIAE- RESP PCR PANEL NOT DETECTED
[2020-05-04] MEDS ORDERED: NICOTINE 14 MG PATCH TOP STA (17:32)
[2020-05-04] MEDS ORDERED: LORazepam 1 MG TABLET PO STA (18:17)
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
[2020-05-04] MEDS ORDERED: OLANZapine ODT 5 MG TABLET TL ONE (21:41)
[2020-05-05] MEDS ORDERED: busPIRone 5 MG TABLET PO STA (01:27)
[2020-05-05] MEDS ORDERED: OLANZapine ODT 5 MG TABLET TL STA (01:27)
--- NOTE | 2020-05-05 03:51 | ED Physician Documentation ---
ED Addendum - Addendum Addendum: 05/05/20 03:49 Is evaluated by INDIA Penaloza who did talk with the patient and the patient then was stating he was willing and cooperative for psychiatric placement. Nursing staff then worked on getting information to the psych facilities and the patient was subsequently accepted by [facility] in [place]. The patient will be transferred there as a voluntary admission. Diagnosis suicidal ideation #2 reactive depression Disposition patient is transferred to psychiatric facility in stable condition.
[2020-05-05 08:15] VITALS: BP 135/77
== END 2020-05-05 08:40 ==
LOC: ED 13:17
DX: R45.851 Suicidal ideations (principal); F30.2 Manic episode, severe with psychotic symptoms; Z91.14 Patient's other noncompliance with medication regimen; F17.210 Nicotine dependence, cigarettes, uncomplicated; Z20.828 Contact with and (suspected) exposure to other viral communicable diseases
CPT/HCPCS: 0202U; 36415; 80053; 80306; 80307; 80320; 80329; 81003; 83690; 84443; 85025; 93005; 99285; A9270; G0425; G0426; J8499; 81001; 87086

== ENCOUNTER 2021-10-24 13:07 | Emergency (ER) | payer MEDICAID ==
[2021-10-24 13:46] VITALS: BP 133/86
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
--- NOTE | 2021-10-24 14:28 | CT Report ---
PROCEDURE: HEAD WO INDICATIONS: headache and believes has chip in head/voices TECHNIQUE: Noncontrast 4.5 mm thick angled axial sections acquired from the foramen magnum to the vertex. For r adiation dose reduction, the following was used: automated exposure control, adjustment of mA and/or kV according to patient size. COMPARISON: None. FINDINGS: Image quality: Excellent. CSF spaces: Basal cisterns are patent. No extra-axial fluid collections. Ventricles are normal in size and shape. Brain: No midline shift. No intracranial masses or hemorrhage. Wong-white matter interface is norm al. Skull and face: Calvarium and visualized facial bones are intact, without suspicious lesions. Sinuses: Visualized sinuses and mastoids are clear. IMPRESSION: No acute intracranial abnormality. Reviewed by: Alethea Escobedo MD on 10/24/2021 2:27 PM PDT Approved by: Alethea Escobedo MD on 10/24/2021 2:27 PM PDT Station ID: [id number]
== END 2021-10-24 14:57 | disposition home or self-care (01) ==
LOC: ED 13:07
DX: F25.9 Schizoaffective disorder, unspecified (principal); F17.200 Nicotine dependence, unspecified, uncomplicated
CPT/HCPCS: 99281; 99284

== ENCOUNTER 2022-03-14 16:13 | Outpatient (CLI) | payer MEDICAID | END 2022-03-14 16:14 | disposition EMS.NT | LOC: EMS 16:13 | DX: F41.9 Anxiety disorder, unspecified (principal) ==

== ENCOUNTER 2022-04-11 13:40 | Outpatient (CLI) | payer MEDICAID | END 2022-04-11 13:41 | disposition critical access hospital (66) | LOC: EMS 13:40 | DX: R00.0 Tachycardia, unspecified (principal); R07.9 Chest pain, unspecified | CPT/HCPCS: A0425; A0429; A0999 ==

== ENCOUNTER 2022-04-11 13:54 | Emergency (ER) | payer MEDICAID ==
--- NOTE | 2022-04-11 13:57 | ED Physician Documentation ---
PD HPI DYSPNEA - Stated complaint Stated Complaint: RAPID HR - History obtained from History obtained from: Patient - History of Present Illness Timing - onset: Yesterday Timing - onset during: Rest, Light activity Timing - details: Gradual onset, Still present, Waxing and waning Inciting event(s): Other (he had noted fast heart rate previously and had been told to stop drinking Monster drinks. This helped HR but he states he has not increased coffee from 1 pot to 2 pots daily, along with black tea and some soda. He states the caffeine improves his focus.). No: Out of meds, URI Worsened by: Exertion Associated symptoms: No: Fever, Cough, Wheezing, Bilateral edema Similar symptoms before: Diagnosis (presumed caffeine use and anxiety recently.) Recently seen: Clinic (seen by psychiatrist last week and is having change of his current meds to new ones, and is supposed to pickle solution maker meds at pharmacy today (so has not started new ones as yet). He does not know what the new ones are. He had not run out of prior ones, so is still taking usual meds.) Review of Systems Constitutional: denies: Fever, Chills Nose: denies: Rhinorrhea / runny nose, Congestion Throat: denies: Sore throat Cardiac: reports: Palpitations. denies: Chest pain / pressure, Pedal edema, Calf pain Respiratory: denies: Cough, Wheezing GI: denies: Nausea, Vomiting, Diarrhea Musculoskeletal: denies: Neck pain, Back pain Neurologic: denies: Generalized weakness, Near syncope, Altered mental status, Headache PD PAST MEDICAL HISTORY - Past Medical History Cardiovascular: None Respiratory: None Neuro: None Endocrine/Autoimmune: None GI: None : None HEENT: None Psych: Depression, Anxiety, Bipolar disorder, Other Musculoskeletal: None Derm: None - Past Surgical History Past Surgical History: Yes Ortho: Other HEENT: Tonsil/Adenoidectomy - Present Medications Home Medications: Ambulatory Orders Medication Instructions Recorded Confirmed OLANZapine [Zyprexa] 5 mg PO DAILY 01/11/18 05/04/20 OLANZapine [Zyprexa] 15 mg PO DAILY PM 02/19/19 05/04/20 lamoTRIgine [Subvenite] 450 mg PO DAILY 02/19/19 05/04/20 Buspirone HCl 15 mg PO TID 05/04/20 05/04/20 OLANZapine [Zyprexa] 15 mg PO BID #20 tablet 10/24/21 Propranolol [Inderal] 10 mg PO DAILY #15 tablet 04/11/22 - Allergies Allergies/Adverse Reactions: Allergies Allergy/AdvReac Type Severity Reaction Status Date / Time gluten AdvReac upset Verified 10/24/21 13:46 stomach lactose AdvReac UPSET Verified 10/24/21 13:46 STOMACH - Living Situation Living Situation: reports: Alone Living Arrangement: reports: At home - Social History Does the pt smoke?: Yes Smoking Status: Current every day smoker Does the pt drink ETOH?: Yes Does the pt have substance abuse?: No - Family History Family history: reports: Non contributory - Immunizations Immunizations are current?: Yes Immunizations: Other immun not current - POLST Patient has POLST: No PD ED PE NORMAL - Vitals Vital signs reviewed: Yes - General General: Alert and oriented X 3, No acute distress, Well developed/nourished - HEENT HEENT: Moist mucous membranes, Pharynx benign - Neck Neck: Supple, no meningeal sign, Thyroid normal - Cardiac Cardiac: No murmur. No: RRR (regular but tachycardic 110-115) - Respiratory Respiratory: No respiratory distress, Clear bilaterally - Abdomen Abdomen: Soft, Non tender - Derm Derm: Normal color, Warm and dry - Neuro Neuro: Alert and oriented X 3, No motor deficit, No sensory deficit, Normal speech - Psych Psych: No: Normal affect (somewhat anxious. Some repetitive of ideas but not pressured nor tangential. ) Results - Vitals Vitals: Vital Signs - 24 hr 04/11/22 04/11/22 04/11/22 14:00 14:22 16:11 Temperature 37.3 C 37.3 C 36.5 C Heart Rate 113 H 113 H 88 Respiratory 18 18 16 Rate Blood Pressure 155/92 H 155/92 H 130/88 H O2 Saturation 98 98 98 Oxygen O2 Source Room air - EKG (time done) 14:15 Rate: Rate (enter#) (100) Rhythm: NSR [place]: Normal Intervals: Normal AL QRS: Normal Ischemia: Normal ST segments, T wave inversion, Non specific changes. No: ST elevation c/w ischemia, ST depression Compare to prior EKG: Old EKG unavailable - Labs Labs: Laboratory Tests 04/11/22 04/11/2222 14:26 14:26 14:26 WBC 6.2 RBC 5.15 Hgb 16.4 Hct 46.4 MCV 90.1 MCH 31.8 H MCHC 35.3 RDW 11.0 L Plt Count 179 MPV 10.1 Neut # (Auto) 4.3 Lymph # (Auto) 1.4 L Howell # (Auto) 0.4 Eos # (Auto) 0.0 Baso # (Auto) 0.0 Absolute Nucleated RBC 0.00 Nucleated RBC % 0.0 Sodium 137 Potassium 3.7 Chloride 104 Carbon Dioxide 25 Anion Gap 8.0 BUN 10 Creatinine 1.1 Estimated GFR (MDRD) 82 L Glucose 143 H Calcium 10.1 Magnesium 2.0 Total Bilirubin 0.5 AST 28 ALT 25 Alkaline Phosphatase 83 Total Protein 7.5 Albumin 4.8 Globulin 2.7 Albumin/Globulin Ratio 1.8 Lipase 26 TSH 0.75 Urine Opiates Screen Ur Oxycodone Screen Urine Methadone Screen Ur Propoxyphene Screen Ur Barbiturates Screen Ur Tricyclics Screen Ur Phencyclidine Scrn Ur Amphetamine Screen U Methamphetamines Scrn U Benzodiazepines Scrn Urine Cocaine Screen U Cannabinoids Screen 04/11/22 15:20 WBC RBC Hgb Hct MCV MCH MCHC RDW Plt Count MPV Neut # (Auto) Lymph # (Auto) Howell # (Auto) Eos # (Auto) Baso # (Auto) Absolute Nucleated RBC Nucleated RBC % Sodium Potassium Chloride Carbon Dioxide Anion Gap BUN Creatinine Estimated GFR (MDRD) Glucose Calcium Magnesium Total Bilirubin AST ALT Alkaline Phosphatase Total Protein Albumin Globulin Albumin/Globulin Ratio Lipase TSH Urine Opiates Screen NEGATIVE Ur Oxycodone Screen NEGATIVE Urine Methadone Screen NEGATIVE Ur Propoxyphene Screen NEGATIVE Ur Barbiturates Screen NEGATIVE Ur Tricyclics Screen NEGATIVE Ur Phencyclidine Scrn NEGATIVE Ur Amphetamine Screen NEGATIVE U Methamphetamines Scrn NEGATIVE U Benzodiazepines Scrn NEGATIVE Urine Cocaine Screen NEGATIVE U Cannabinoids Screen NEGATIVE PD MEDICAL DECISION MAKING - ED course Complexity details: reviewed results, re-evaluated patient (improved with some ativan. I discussed with him not wanting to Rx regular benzos. Suggested Propranolol short term while transitioning to new psych meds and decreasing caffein by large margin to reduce HR and help with some anxiety.), considered differential (sinus tachycardia without obvious cause aside from excess caffeine use and anxiety. Basic labs and ECG are okay with just some nonspecific T abnormalities. ), d/w patient Departure - Departure Disposition: 01 Home, Self Care Clinical Impression: Tachycardia, Caffeine adverse reaction, Bipolar disorder, Anxiety Condition: Stable Record reviewed to determine appropriate education?: Yes Prescriptions: Propranolol [Inderal] 10 mg PO DAILY #15 tablet Comments: There could possibly be several causes related to her causing your fast heart rate. I think the main component at the moment that is easy to change would be decreasing the amount of caffeine that you use. You said you had increased your amount of caffeine from 1-2 pots of coffee a day after stopping the Monster energy drink. Coffee as well as the energy drinks as well as caffeinated sodas and black tea are all sources of caffeine. Minimize the amount of caffeine taken daily. I would anticipate your heart rate and some anxiety and trouble sleeping to decrease with that. Meanwhile for the next week or 2 we could treat with propranolol which is a medication to help slow the heart rate a bit and also helps with anxiety. Otherwise obtain the medications prescribed by your psychiatrist and call their office to discuss the prescriptions and changing from your current ones to the new ones. Stay well-hydrated. I transmitted your prescription to [facility] pharmacy. Discharge Date/Time: 04/11/22 16:11
[2022-04-11] MEDS ORDERED: SODIUM CHLORIDE 0.9% 1,000 ML IV STA (14:12)
[2022-04-11] MEDS ORDERED: LORazepam 2 MG/ML VIAL IVP STA (14:13)
[2022-04-11 14:44] LABS: BASOPHILS % (AUTO) 0.5 %; HCT - HEMATOCRIT 46.4 % (42.0-52.0); HGB - HEMOGLOBIN 16.4 g/dL (14.0-18.0); LYMPHOCYTES # (AUTO) 1.4 10^3/uL (1.5-3.5); LYMPHOCYTES % (AUTO) 22.3 %; MEAN CORPUSCULAR HEMOGLOBIN 31.8 pg (27.0-31.0); MEAN CORPUSCULAR HGB CONC 35.3 g/dL (32.0-36.0); MEAN CORPUSCULAR VOLUME 90.1 fL (80.0-94.0); MEAN PLATELET VOLUME 10.1 fL (7.4-11.4); MONOCYTES # (AUTO) 0.4 10^3/uL (0.0-1.0); MONOCYTES % (AUTO) 6.8 %; NEUTROPHILS # (AUTO) 4.3 10^3/uL (1.5-6.6); NEUTROPHILS % (AUTO) 69.9 %; PLT - PLATELET COUNT 179 10^3/uL (130-450); RED BLOOD COUNT 5.15 10^6/uL (4.70-6.10); WHITE BLOOD COUNT 6.2 x10^3/uL (4.8-10.8)
[2022-04-11 14:55] LABS: ALBUMIN 4.8 g/dL (3.2-5.5); ALBUMIN/GLOBULIN RATIO 1.8 (1.0-2.2); BILIRUBIN,TOTAL 0.5 mg/dL (0.2-1.0); CALCIUM 10.1 mg/dL (8.5-10.3); CREATININE 1.1 mg/dL (0.6-1.2); POTASSIUM 3.7 mmol/L (3.5-5.0); TOTAL PROTEIN 7.5 g/dL (6.7-8.2)
[2022-04-11 15:28] LABS: MUDS CUTOFF CONCENTRATIONS CUTOFF CONC BELOW:
[2022-04-11 15:39] LABS: AMPHETAMINE SCREEN,URINE NEGATIVE (NEGATIVE); BARBITURATE SCREEN,UR NEGATIVE (NEGATIVE); BENZODIAZEPINES SCREEN, URINE NEGATIVE (NEGATIVE); COCAINE SCREEN URINE NEGATIVE (NEGATIVE); METHADONE SCREEN, URINE NEGATIVE (NEGATIVE); METHAMPHETAMINES SCREEN, URINE NEGATIVE (NEGATIVE); OPIATE SCREEN, URINE NEGATIVE (NEGATIVE); OXYCODONE SCREEN, URINE NEGATIVE (NEGATIVE); PROPOXYPHENE SCREEN, URINE NEGATIVE (NEGATIVE); THC CANNABINOID SCREEN, URINE NEGATIVE (NEGATIVE); TRICYCLIC ANTIDEPRESSANT,URINE NEGATIVE (NEGATIVE)
[2022-04-11] MEDS ORDERED: PROPRANOLOL 10 MG TABLET PO STA (15:56)
[2022-04-11 16:12] VITALS: BP 130/88
== END 2022-04-11 16:11 | disposition home or self-care (01) ==
LOC: EDUNIT# → ED 13:54
DX: R00.0 Tachycardia, unspecified (principal); F41.9 Anxiety disorder, unspecified; T43.615A Adverse effect of caffeine, initial encounter; F31.9 Bipolar disorder, unspecified; F17.200 Nicotine dependence, unspecified, uncomplicated
CPT/HCPCS: 36415; 80053; 80306; 83690; 83735; 84443; 85025; 93005; 96361; 96374; 99284; A9270; J2060

== ENCOUNTER 2023-03-03 19:17 | Outpatient (CLI) | payer SELFPAY | END 2023-03-03 23:59 | disposition critical access hospital (66) | LOC: EMS 19:17 | DX: R44.1 Visual hallucinations (principal); R44.0 Auditory hallucinations | CPT/HCPCS: A0425; A0429 ==

== ENCOUNTER 2023-03-03 19:35 | Emergency (ER) | payer OTHER ==
[2023-03-03 19:51] VITALS: BP 130/79; O2SAT 98
[2023-03-03] MEDS ORDERED: OLANZapine ODT 5 MG TABLET TL STA (20:09)
[2023-03-03 20:10] LABS: BASOPHILS % (AUTO) 0.4 %; EOSINOPHILS # (AUTO) 0.1 10^3/uL (0.0-0.7); EOSINOPHILS % (AUTO) 0.9 %; HCT - HEMATOCRIT 45.7 % (42.0-52.0); HGB - HEMOGLOBIN 15.5 g/dL (14.0-18.0); LYMPHOCYTES # (AUTO) 1.9 10^3/uL (1.5-3.5); MEAN CORPUSCULAR HEMOGLOBIN 32.2 pg (27.0-31.0); MEAN CORPUSCULAR HGB CONC 33.9 g/dL (32.0-36.0); MEAN CORPUSCULAR VOLUME 94.8 fL (80.0-94.0); MEAN PLATELET VOLUME 10.6 fL (7.4-11.4); MONOCYTES # (AUTO) 0.5 10^3/uL (0.0-1.0); MONOCYTES % (AUTO) 7.9 %; NEUTROPHILS # (AUTO) 4.1 10^3/uL (1.5-6.6); NEUTROPHILS % (AUTO) 61.7 %; PLT - PLATELET COUNT 163 10^3/uL (130-450); RED BLOOD COUNT 4.82 10^6/uL (4.70-6.10); RED CELL DISTRIBUTION WIDTH 11.8 % (12.0-15.0); WHITE BLOOD COUNT 6.7 x10^3/uL (4.8-10.8)
--- NOTE | 2023-03-03 20:12 | ED Physician Documentation ---
PD HPI MHE - Stated complaint Stated Complaint: MHE/HALLUCINATIONS - Chief complaint Chief Complaint: MHE - History obtained from History obtained from: Patient, EMS - History of Present Illness Primary symptom: Psychosis Pain level max: 0 Pain level now: 0 Recently seen: Not recently seen - Additional information Additional information: Patient is a 27-year-old male who presents to the emergency department stating that he has been off of all his antipsychotic medications for the past several months. He was on chlorpromazine, 100 mg p.o. 3 times daily, olanzapine 20 mg 1 tab p.o. nightly, olanzapine 5 mg p.o. every morning, propanolol 10 mg p.o. twice daily. Trazodone 50 mg p.o. nightly. Patient states that he does hear voices but they are not telling him to do anything. He is not suicidal or homicidal. Apparently he told EMS that he had parasites in his brain, but denie s this to me. Review of Systems Constitutional: denies: Fever, Chills Respiratory: denies: Cough GI: denies: Nausea, Vomiting, Hematemesis Skin: denies: Rash PD PAST MEDICAL HISTORY - Past Medical History Past Medical History: Yes Psych: Other (Schizoaffective disorder) - Present Medications Home Medications: Ambulatory Orders Medication Instructions Recorded Confirmed No Known Home Medications 03/03/23 03/03/23 - Allergies Allergies/Adverse Reactions: Allergies Allergy/AdvReac Type Severity Reaction Status Date / Time No Known Drug Allergies Allergy Verified 03/03/23 19:51 - Living Situation Living Arrangement: reports: At home - Social History Does the pt have substance abuse?: Yes Substance Use and Type: Marijuana - Family History Family history: reports: Non contributory PD ED PE NORMAL - Vitals Vital signs reviewed: Yes - General General: Alert and oriented X 3, No acute distress, Other (Patient is slow to respond, appears to be responding to an internal stimuli) - HEENT HEENT: PERRL, Moist mucous membranes - Neck Neck: Supple, no meningeal sign - Cardiac Cardiac: RRR, Strong equal pulses - Respiratory Respiratory: No respiratory distress, Clear bilaterally - Abdomen Abdomen: Soft, Non tender, Non distended - Derm Derm: Warm and dry - Extremities Extremities: No edema, No calf tenderness / cord - Neuro Neuro: Alert and oriented X 3 - Psych Psych: Normal mood, Normal affect Results - Vitals Vitals: Vital Signs - 24 hr 03/03/23 19:35 Temperature 36.9 C Heart Rate 59 L Respiratory 18 Rate Blood Pressure 130/79 O2 Saturation 98 Oxygen O2 Source Room air - Labs Labs: Laboratory Tests 03/03/23 03/03/23 03/03/23 20:03 20:03 20:15 WBC 6.7 RBC 4.82 Hgb 15.5 Hct 45.7 MCV 94.8 H MCH 32.2 H MCHC 33.9 RDW 11.8 L Plt Count 163 MPV 10.6 Neut # (Auto) 4.1 Lymph # (Auto) 1.9 [place] # (Auto) 0.5 Eos # (Auto) 0.1 Baso # (Auto) 0.0 Absolute Nucleated RBC 0.00 Nucleated RBC % 0.0 Sodium 138 Potassium 4.0 Chloride 103 Carbon Dioxide 28 Anion Gap 7.0 BUN 6 Creatinine 0.9 Estimated GFR (MDRD) 103 Glucose 94 Calcium 10.1 Magnesium 1.8 Total Bilirubin 1.2 H AST 20 ALT 23 Alkaline Phosphatase 102 Total Creatine Kinase 72 Total Protein 6.7 Albumin 4.6 Globulin 2.1 Albumin/Globulin Ratio 2.2 Lipase 12 TSH 0.45 Urine Color DARK YELLOW Urine Clarity CLEAR Urine pH 6.0 Ur Specific [place] >=1.030 H Urine Protein NEGATIVE Urine Glucose (UA) NEGATIVE Urine Ketones TRACE Urine Occult Blood NEGATIVE Urine Nitrite NEGATIVE Urine Bilirubin NEGATIVE Urine Urobilinogen 0.2 (NORMAL) Ur Leukocyte Esterase NEGATIVE Ur Microscopic Review NOT INDICATED Urine Culture Comments NOT INDICATED Salicylates < 1.5 Urine Opiates Screen NEGATIVE Ur Oxycodone Screen NEGATIVE Urine Methadone Screen NEGATIVE Ur Propoxyphene Screen NEGATIVE Acetaminophen < 0.1 Ur Barbiturates Screen NEGATIVE Ur Tricyclics Screen NEGATIVE Ur Phencyclidine Scrn NEGATIVE Ur Amphetamine Screen NEGATIVE U Methamphetamines Scrn NEGATIVE U Benzodiazepines Scrn NEGATIVE Urine Cocaine Screen NEGATIVE U Cannabinoids Screen POSITIVE H Ethyl Alcohol < 10.0 PD Medical Decision Making - ED course Complexity details: reviewed results, considered differential, d/w patient ED course: Patient is medically clear for psychiatric care. Restarted on Zyprexa. Patient will be signed out to Dr. Ramires awaiting telepsychiatry consult. Please see her note for further care. This document was made in part using voice recognition software. While efforts are made to proofread this document, sound alike and grammatical errors may occur. Departure - Departure Clinical Impression: Schizoaffective disorder, chronic condition with acute exacerbation Condition: Stable Forms: PCP List
[2023-03-03 20:21] LABS: MUDS CUTOFF CONCENTRATIONS CUTOFF CONC BELOW:
[2023-03-03 20:25] LABS: GLUCOSE, URINE (UA) NEGATIVE (NEGATIVE); KETONES,URINE (UA) TRACE mg/dL (NEGATIVE); LEUKOCYTE ESTERASE, URINE NEGATIVE (NEGATIVE); NITRITE,URINE NEGATIVE (NEGATIVE); OCCULT BLOOD,URINE NEGATIVE (NEGATIVE); PROTEIN,URINE NEGATIVE (NEGATIVE); UROBILINOGEN,URINE 0.2 (NORMAL) E.U./dL (NORMAL)
[2023-03-03 20:29] LABS: ALBUMIN 4.6 g/dL (3.2-5.5); ALBUMIN/GLOBULIN RATIO 2.2 (1.0-2.2); ALKALINE PHOSPHATASE 102 IU/L (42-121); ALT ALANINE AMINOTRANSFERASE 23 IU/L (10-60); AST ASPARTATE AMINOTRANSFERASE 20 IU/L (10-42); BILIRUBIN,TOTAL 1.2 mg/dL (0.2-1.0); BUN - BLOOD UREA NITROGEN 6 mg/dL (6-20); CALCIUM 10.1 mg/dL (8.5-10.3); CARBON DIOXIDE - CO2 28 mmol/L (21-32); CHLORIDE 103 mmol/L (101-111); CK- CREATINE KINASE 72 IU/L (30-223); CREATININE 0.9 mg/dL (0.6-1.3); ETOH - ETHANOL < 10.0 mg/dL; GFR - MDRD 103 (>89); GLUCOSE 94 mg/dL (74-104); LIPASE 12 U/L (11-82); MAGNESIUM 1.8 mg/dL (1.7-2.3); SODIUM 138 mmol/L (135-145); TOTAL PROTEIN 6.7 g/dL (6.4-8.9)
[2023-03-03 20:30] LABS: ACETAMINOPHEN < 0.1 ug/mL
[2023-03-03 20:33] LABS: BILIRUBIN,URINE NEGATIVE (NEGATIVE); CLARITY,URINE CLEAR (CLEAR); ICTOTEST,URINE NEGATIVE
[2023-03-03 20:34] LABS: SALICYLATE < 1.5 mg/dL
[2023-03-03 20:36] LABS: AMPHETAMINE SCREEN,URINE NEGATIVE (NEGATIVE); BARBITURATE SCREEN,UR NEGATIVE (NEGATIVE); BENZODIAZEPINES SCREEN, URINE NEGATIVE (NEGATIVE); COCAINE SCREEN URINE NEGATIVE (NEGATIVE); METHADONE SCREEN, URINE NEGATIVE (NEGATIVE); METHAMPHETAMINES SCREEN, URINE NEGATIVE (NEGATIVE); OPIATE SCREEN, URINE NEGATIVE (NEGATIVE); OXYCODONE SCREEN, URINE NEGATIVE (NEGATIVE); PROPOXYPHENE SCREEN, URINE NEGATIVE (NEGATIVE); THC CANNABINOID SCREEN, URINE POSITIVE (NEGATIVE); TRICYCLIC ANTIDEPRESSANT,URINE NEGATIVE (NEGATIVE)
[2023-03-03 20:57] LABS: THYROID STIMULATING HORMONE 0.45 uIU/mL (0.34-5.60)
--- NOTE | 2023-03-04 00:22 | ED Physician Documentation ---
ED Addendum - Addendum Addendum: 03/04/23 00:21 Patient refused to speak with psychiatric services, screaming of pain. I spoke with the patient just minutes before the psychiatrist came onto the telemetry screen, and the patient was requesting to speak to the psychiatrist tomorrow, stating he was "too tired". Denying any pain. I discussed the patient's case with the psychiatrist Dr. Chavez, we are both in agreement that this seems to be malingering for secondary gain. Patient will be discharged at this time. He is not suicidal, denies homicidal ideation, he states that his voices are not telling him to do anything specifically.
--- NOTE | 2023-03-04 00:32 | TELEPSYCH PHYS NOTE ---
Telepsych Consultation Note Consult: Array Name: NICKY YOUNGER : 1995 Date and Time: 03/04/2023 3:01:51 AM Location of the patient: [facility] ED Location of the doctor: [place] Length of consult: 20 min This evaluation was conducted via video telepsychiatry with the assistance of onsite staff Reason for consult: psychosis Requested by: ER staff History of Present Illness: The patient is a 27-year-old male with a history of Schizoaffective Disorder. The patient presented to the ER complaining of auditory hallucinations and a belief that he had parasites in his brain the patient (reported parasites to the initial ER physician, but denied this to the next physician) but denied suicidal or homicidal ideations. While he admitted to auditory hallucinations, the patient reported the hallucinations were not command in nature. Patient had been previously on her regimen of Thorazine 100 mg TID, Zyprexa 20 mg HS, Zyprexa 5 mg in the morning, trazodone 50 mg HS, and propranolol 10 mg BID. He has been without medication for several months. The patient requested inpatient psychiatric care but said that there were several places he would not go. A psychiatric consultation was requested. Minutes before the email, the ER physician went into the room and the patient complained of no pain. As the nurse was willing [facility], the patient can be heard "I don't talk right now I'm tired." When the patient noticed the psychiatrist was already on the monitor, the patient said that he could not be interviewed because he was in pain. The psychiatrist repeatedly asked where the pain was in the patient yelled and screamed that he was in pain. The patient was also asked by the nurse about the pain and was reminded that the patient denied any pain symptoms minutes earlier. The patient continued to yell and scream that he was in pain but refused to elaborate the details. The patient repeatedly asked to have the evaluation delayed while he screamed that he was in pain without giving any details about the pain. Collateral Contacted: No Reason for not contacting the collateral:None available Sleep issues?: Unknown-NA Psychiatric History/Treatment History: Past diagnoses: Schizoaffective Disorder Hospitalizations: Yes Description: Current Treatment:No Suicide Assessment: PSS-3: 1) Over the past 2 weeks have you felt down, depressed or hopeless? No 2) Over the past 2 weeks have you had thoughts of killing yourself? No 3) Have you ever in your life attempted to kill yourself? Unknown-NA Within the past 6 months? [facility] Safety Assessment: Risk Factors Stressors: see HPI Attempts/Self-injury: Unknown-NA Impulsivity:Unknown-NA Drug/Alcohol History:Unknown-NA Trauma History:Unknown-NA Access to firearms:Unknown-NA HI/Violence/Property destruction:Unknown-NA Legal: Unknown-NA Family Psych History:Unknown-NA Family History of suicide:Unknown-NA Protective Factors: Can handle stress well? Unknown-NA L[employer] Day? Unknown-NA External: Social supports/ Therapeutic relationships: Unknown-NA Relationship history: unknown Living situation: unknown Employment: Unknown-NA Education: unknown Responsibility to family/children/work: Unknown-NA Future orientation:Unknown-NA Health History: Medical History: none Medications & Freq: none Allergies: nkda Mental Status Exam: Appearance and Attire: Normal Psychomotor agitation: Psychomotor agitation Attitude and behavior: Agitated Speech: Loud, screaming, cursing Mood: Labile, Anxious Affect: Irritable Thought process: Circumstantial Thought content: Delusions Perception: Auditory hallucinations Intel: Average Abstract: Appropriate Language: No abnormality Orientation: unable to assess Sense: Normal Knowledge: Appropriate for education and socioeconomic status Memory: Intact Insight: Appropriate Judgement: Mild impairment Gait: No abnormality Impression/Risk Assessment: Current Suicide Risk Elevated? No Current Violence Risk Elevated? No Issues with ability to care for self? No Summary: The patient is a 27-year-old male with a history of Schizoaffective Disorder who presents to the ER reporting hallucinations and delusions. The patient requested inpatient psychiatric care but admitted that would not agreed to go to several locations. The patient asked for psychiatric evaluation and then reported a new symptom (severe pain) when the evaluation was attempted. Furthermore, the patient would not divulge any details so that this new pain symptom could be addressed. His presentation is highly suspicious of secondary gain and appears the patient is trying to delay a resolution of the case so that he may remain in the ER. Case was discussed with the ER physician and it was agreed that discharged was the most appropriate measure Diagnosis: F25.9 Schizoaffective disorder, unspecified CPT Codes: 95562 - Psychiatric Diagnostic Evaluation with Medical Services Treatment Plan: General: Level of Care: Outpatient care Psychiatric Clearance: Yes Observation level 1:1 needed?: No Pharmacological: n/a Patient psychotic?No Therapy: suppportive Follow up needed while in the hospital?: No Discussed plan with onsite senior engineering team leader: Yes Who Kristie Ramires, DO Other: List names and roles of persons who participated in consult: Jose Chavez MD
== END 2023-03-04 00:25 | disposition home or self-care (01) ==
LOC: ED 19:35 → MERGE 19:35 → ED 03-04 00:25
DX: F25.9 Schizoaffective disorder, unspecified (principal); T43.3X6A Underdosing of phenothiazine antipsychotics and neuroleptics, initial encounter; T43.596A Underdosing of other antipsychotics and neuroleptics, initial encounter; T43.216A Underdosing of selective serotonin and norepinephrine reuptake inhibitors, initial encounter
CPT/HCPCS: 36415; 80053; 80306; 80307; 80320; 80329; 81003; 82550; 83690; 83735; 84443; 85025; 99283; A9270; G0425; Q3014; 81001; 87086

== ENCOUNTER 2023-06-20 07:12 | Emergency (ER) | payer OTHER | END 2023-06-20 07:29 | disposition left against medical advice (07) | LOC: ED 07:12 | DX: Z53.21 Procedure and treatment not carried out due to patient leaving prior to being seen by health care provider (principal) ==